=== PATIENT | male | born 1940 | race Hispanic/Latino ===

== ENCOUNTER 2020-05-10 10:22 | Inpatient (IN) | payer MEDICARE, MEDICAID, OTHER ==
[2020-05-10 11:23] LABS: ALT (SGPT) Less than 7 U/L (8-55); AST (SGOT) 13 U/L (5-34); Albumin 3.3 g/dL (3.4-4.8); Alkaline Phosphatase 104 U/L (40-110); Anion Gap 14 mmol/L (10-20); BUN (Urea Nitrogen) 14 mg/dL (8.4-25.7); Bilirubin, Total 1.1 mg/dL (0.2-1.2); CK (CPK) 37 U/L (30-200); Calc. Creatinine Clearance 0 mL/min (70-130); Calcium 8.6 mg/dL (7.8-10.44); Carbon Dioxide 33 mmol/L (23-31); Chloride 93 mmol/L (98-107); Estimated GFR-MDRD 15; Globulin 3.6 g/dL (2.4-3.5); Glucose 103 mg/dL (83-110); Lipase 15 U/L (8-78); Potassium 3.3 mmol/L (3.5-5.1); Protein, Total 6.9 g/dL (5.8-8.1); Sodium 137 mmol/L (136-145)
[2020-05-10 11:31] LABS: #Lymphocytes 0.4 thou/uL (1.20-3.40); #Monocytes 0.2 thou/uL (0.11-0.59); %Eosinophils 0.3 % (0.0-10.0); %Lymphocytes 16.2 % (21.0-51.0); %Neutrophils 74.6 % (42.0-75.0); Hemoglobin 9.8 g/dL (14.0-18.0); Mean Corpuscular HGB CONC 35.7 g/dL (32.0-36.0); Mean Corpuscular Hemoglobin 36.7 pg (27.0-31.0); Platelet Count 99 thou/uL (130-400); Platelet Morphology Comment Appears Decreased; RBC Distribution Width 13.5 % (11.5-14.5); Red Blood Cell (RBC) Count 2.66 mill/uL (4.70-6.10); White Blood Cell (WBC) Count 2.7 thou/uL (4.8-10.8)
[2020-05-10 11:33] LABS: MDiff Complete? YES
[2020-05-10 11:44] LABS: CKMB 0.8 ng/mL (0-6.6)
--- NOTE | 2020-05-10 11:44 | RAD ---
PORTABLE CHEST ONE VIEW: 05/10/2020 10:33 a.m. HISTORY: Fever. Dyspnea. COMPARISON: 11/12/2009 FINDINGS: The heart size is borderline. There are changes of median sternotomy. There are right-sided vascular stents. There are bibasilar infiltrates. No pneumothoraces or large effusions are seen. POS: MZA
[2020-05-10] MEDS ORDERED: Aspirin Chewable 81 MG TAB ONE (12:03)
[2020-05-10] MEDS ORDERED: Aspirin 300 MG Suppository ONE (12:03)
[2020-05-10] MEDS ORDERED: Ondansetron PF 4 MG/2 ML Vial IVP PRN (12:11)
[2020-05-10] MEDS ORDERED: Acetaminophen 325 MG TAB PO PRN (12:11)
[2020-05-10] MEDS ORDERED: Ondansetron ODT 4 MG TAB SL PRN (12:11)
[2020-05-10] MEDS ORDERED: Heparin 25,000 units/D5W 500 ML ONE (12:22)
[2020-05-10] MEDS ORDERED: Heparin 1,000 UNITS/ML VIAL ONE (13:45)
[2020-05-10 14:14] LABS: Troponin I 0.435 ng/mL (< 0.028)
[2020-05-10] MEDS ORDERED: Dextrose 50% Abboject 50 ML SYRINGE ONE (14:40)
--- NOTE | 2020-05-10 15:10 | HP ---
PRIMARY CARE PHYSICIAN: Unknown. CHIEF COMPLAINT: Altered mental status and weakness. HISTORY OF PRESENT ILLNESS: The history of present illness is taken from discussion with the ER physician and the emergency room records as there is no family at the bedside and the patient is too confused to give me any history and history was also attempted to be obtained through a professional senior payroll administrator, but this was not possible due to the patient's confusion as well. Mr. Benitez is a 79-year-old gentleman, who has a history of end-stage renal disease, on hemodialysis. He was brought in by family members as he has been tested for coronavirus, but apparently they did not have the results back yet. They were noticed that he seemed confused and he was noted to be febrile on admission. Apparently, they noticed that he was shaking. Otherwise, no other history is obtained. The patient when asked if he was having any shortness of breath, he denied this, or any chest pain, he also denied, but he was not able to tell me where he is. He was not able to tell the date; when asked, he just stared at me, but he was able to answer those other questions. REVIEW OF SYSTEMS: Currently unobtainable. PAST MEDICAL HISTORY: Significant for what appears to be coronary artery disease and end-stage renal disease. PAST SURGICAL HISTORY: Unknown. SOCIAL HISTORY: Unknown. ALLERGIES: NO DRUG ALLERGIES THAT WE ARE AWARE OF. FAMILY HISTORY: Unobtainable due to the patient being confused. MEDICATIONS: As reported from the EMS, that picked him up, that he was on, 1. Plavix daily. 2. Metoprolol. 3. Glipizide. 4. Simvastatin. PHYSICAL EXAMINATION: GENERAL: He is awake, but he does tend to fall asleep easily during the exam. Unable to assess orientation. He is well developed and well nourished in appearance. VITAL SIGNS: Blood pressure 136/51, heart rate 72, respiratory rate 16, temperature 100.6, and O2 sat 96% on room air. HEENT: Pupils are equal, round, and reactive to light. Extraocular muscles are intact. Sclerae anicteric. NECK: No adenopathy. No bruits. LUNGS: He has bilateral rales, very soft, faint at the bases. There is no wheezing or rhonchi. CARDIOVASCULAR: He has a normal S1 and S2. There is no S3 or S4. No murmurs, clicks or rubs. ABDOMEN: Soft, nontender, and nondistended. Positive for bowel sounds. No rebound. No guarding. No organomegaly. EXTREMITIES: There is no clubbing or cyanosis. No edema. No calf tenderness. No joint effusions. NEUROLOGIC: He is moving all extremities and is grossly nonfocal. SKIN AND INTEGUMENT: There is no significant skin changes, no rash. LABORATORY DATA: White blood cell count 2.7, hemoglobin 9.8, hematocrit 27.4, and platelet count 99. Chemistry; sodium 137, potassium 3.3, chloride 93, CO2 of 33, BUN 14, creatinine 3.91, and glucose 103. Troponin is 0.372. DIAGNOSTIC DATA: He had a chest x-ray, in which he had borderline cardiomegaly, increased pulmonary vascular markings bilaterally, and was not able to see the costophrenic angles clearly, that is by my reading. There is an EKG done by the EMS showing some T-wave inversions in I and aVL and some nonspecific ST-T wave changes in lead II and III. This is by my reading. ASSESSMENT: 1. This is a 79-year-old gentleman, who presents with what appears to be a fairly sudden onset of altered mental status and fever according to the family. He has exposure to the COVID-19 virus by family members and is at high risk of having the infection himself. It appears as if he has bilateral infiltrates, fever and an elevated troponin, which is likely demand due to pneumonia, and sepsis. He will be admitted, started on empiric antibiotics for community-acquired pneumonia. Placed on respiratory isolation as well as droplet precautions given the risk for COVID pneumonia. We will continue to trend his cardiac enzymes as well as his inflammatory markers. If his troponins go much higher than the current level, then we will consider Cardiology evaluation. The COVID screen has been obtained. 2. End-stage renal disease. We will consult Nephrology for maintenance dialysis. 3. We will need to reconcile and restart his home medications, and then also hopefully we will be able to discuss with family to see if there is any additional history that can be obtained that might affect the course of his treatment. Job ID: [id number]
[2020-05-10] MEDS ORDERED: Nitroglycerin 0.4 MG TAB (25 Tab Bottle) PO PRN (15:16)
[2020-05-10] MEDS ORDERED: Heparin 25,000 units/D5W 500 ML IVPB SCH (15:16)
[2020-05-10] MEDS ORDERED: Heparin 10,000 UNITS/ 10 ML VIAL SLOW IVP SCH ×3 (15:16→17:45)
[2020-05-10] MEDS ORDERED: Nitroglycerin 2% Ointment 1 INCH/1 GM Packet TOP SCH (15:30)
[2020-05-10 15:45] LABS: Hemoglobin 9.6 g/dL (14.0-18.0); Platelet Count 78 thou/uL (130-400)
[2020-05-10] MEDS ORDERED: cefTRIAXone\\ROCEPHIN 1 GM in Sodium Chloride 0.9% 100 ML IVPB SCH (16:00)
[2020-05-10] MEDS ORDERED: Azithromycin 500 MG in Sodium Chloride 0.9% 250 ML 250 ML IVPB SCH (17:00)
[2020-05-10 17:35] LABS: Troponin I 0.474 ng/mL (< 0.028)
--- NOTE | 2020-05-10 17:38 | CON ---
REASON FOR CONSULTATION: ESRD on hemodialysis HISTORY OF PRESENT ILLNESS: Patient is a 79-year-old male with past medical history of ESRD, on hemodialysis; hypertension, who was brought to the hospital with complaints of fever and confusion. Patient is confused, and no family is present at the beds. Attempted to communicate with the patient with the help of we do loss prevention operations manager. Patient is unable to engage in conversation does not answer questions appropriately. Information was obtained from the chart. Patient was brought to ED by the family members as the patient was found to be confused. The patient was apparently tested for coronavirus, results pending. There was no mention of shortness of breath, fever, or chills. Patient's hemodialysis schedule as outpatient is Monday, and Monday. Cannot confirm if the patient had dialysis yesterday. PAST MEDICAL HISTORY: ESRD, on hemodialysis; hypertension. PSH, Social history and family history: unable to obtain PHYSICAL EXAMINATION: VITAL SIGNS: Blood pressure 136/51, pulse rate 72 per minute, respiratory rate 16 per minute, temperature 100.6 Fahrenheit, oxygen saturation 96% on room air. GENERAL: The patient is not in pain or discomfort. HEENT: Mucous membranes are moist. No icterus. CVS: Rhythm regular, rate normal. No murmurs. LUNGS: Air entry equal bilaterally, scattered crackles right>left. No wheezing. ABDOMEN: Soft. No tenderness. Bowel sounds present. EXTREMITIES: No edema or ulcers. TIN CUTTER: Patient is awake, following commands. PSYCHIATRIC: Not agitated. LABORATORY DATA: Hemoglobin 9.6, hematocrit 28.4. Sodium 137, potassium 3.3, bicarb 33, BUN 14, creatinine 3.91. ASSESSMENT AND PLAN: 1. End-stage renal disease, on hemodialysis - outpatient schedule is Monday, , and Monday. We will evaluate in the a.m. for need for renal replacement therapy. 2. Pneumonia - the patient is on Rocephin and Zithromax. 3. Dose medications for end-stage renal disease. Discussed with RN Thank you for allowing to participate in the management of this patient. Job ID: [id number] MTDD
[2020-05-10] MEDS: Carvedilol 6.25 MG TAB PO SCH (18:38)
[2020-05-11] MEDS: Acetaminophen 325 MG TAB PO PRN ×2 (00:58→08:10)
[2020-05-11] MEDS: Nitroglycerin 2% Ointment 1 INCH/1 GM Packet TOP SCH ×4 (01:41→21:11)
[2020-05-11 05:18] LABS: Anion Gap 12 mmol/L (10-20); BUN (Urea Nitrogen) 21 mg/dL (8.4-25.7); CRP (Inflammatory) 11.94 mg/dL (= or < 0.5); Calc. Creatinine Clearance 11 mL/min (70-130); Calcium 8.2 mg/dL (7.8-10.44); Carbon Dioxide 31 mmol/L (23-31); Cardiac Risk 2.7 (Less than 4.5); Chloride 95 mmol/L (98-107); Cholesterol 86 mg/dl (< 200 Desired); Estimated GFR-MDRD 11; Glucose 89 mg/dL (83-110); HDL Cholesterol 32 mg/dL (>60 Neg Risk); LDL Cholesterol, Calculated 40 mg/dL; Potassium 3.1 mmol/L (3.5-5.1); Sodium 135 mmol/L (136-145); Triglycerides 70 mg/dL (Less than 150)
[2020-05-11] MEDS ORDERED: Sevelamer Carbonate 800 MG TAB PO SCH (08:00)
[2020-05-11 08:01] LABS: PTT Greater than 250.0 sec (22.9-36.1)
[2020-05-11] MEDS: Metoprolol Tartrate 25 MG TAB PO SCH ×2 (08:10→20:13)
[2020-05-11] MEDS: Clopidogrel Bisulfate 75 MG TAB PO SCH (08:10)
[2020-05-11] MEDS: Sevelamer Carbonate 800 MG TAB PO SCH ×3 (08:10→18:34)
[2020-05-11] MEDS: Aspirin 81 mg Enteric Coated Tablet PO SCH (08:10)
[2020-05-11] MEDS: Carvedilol 6.25 MG TAB PO SCH ×2 (08:10→18:34)
[2020-05-11] MEDS ORDERED: Prevnar 13-Val Conj/PF 0.5 ML SYRINGE IM ONE (09:00)
[2020-05-11] MEDS ORDERED: Simvastatin 40 MG TAB PO SCH (09:00)
[2020-05-11] MEDS ORDERED: Metoprolol Tartrate 25 MG TAB PO SCH (09:00)
[2020-05-11 09:44] LABS: #Lymphocytes 0.4 thou/uL (1.20-3.40); #Monocytes 0.2 thou/uL (0.11-0.59); #Neutrophils 1.2 thou/uL (1.40-6.50); %Basophils 1.3 % (0.0-1.0); %Eosinophils 1.3 % (0.0-10.0); %Lymphocytes 23.7 % (21.0-51.0); %Monocytes 8.3 % (0.0-10.0); %Neutrophils 65.4 % (42.0-75.0); MDiff Complete? YES; Macrocytosis SLIGHT = 6-15 cells (100X) (0-5/hpf); Mean Corpuscular HGB CONC 34.1 g/dL (32.0-36.0); Mean Corpuscular Hemoglobin 35.8 pg (27.0-31.0); Mean Platelet Volume 9.7 fL (7.4-10.4); Platelet Count 99 thou/uL (130-400); Platelet Morphology Comment Appears Decreased; RBC Distribution Width 13.5 % (11.5-14.5); Red Blood Cell (RBC) Count 2.51 mill/uL (4.70-6.10); White Blood Cell (WBC) Count 1.8 thou/uL (4.8-10.8)
[2020-05-11 14:07] LABS: SARS-CoV-2 MS2 Positive; SARS-CoV-2 N Gene Positive; SARS-CoV-2 S Gene Positive; SARS-CoV-2 orf1ab Positive
--- NOTE | 2020-05-11 14:54 | PRG ---
DATE OF SERVICE: 05/11/2020 SUBJECTIVE: Patient was seen and examined at bedside and overnight events noted. Patient denies any shortness of breath or chest pain or palpitation. No history of nausea or vomiting or diarrhea or fever or chills or cramps. OBJECTIVE: GENERAL: This is a well-built male, in no apparent distress. VITAL SIGNS: Temperature 98.7. Heart Rate 83. Respiratory rate 18. Blood pressure 143/60. HEENT: Atraumatic, normocephalic. Oral mucosa is moist. NECK: Supple. CARDIOVASCULAR: S1, S2 heard. Rate and rhythm regular. RESPIRATORY: Clear to auscultation. GASTROINTESTINAL: Abdomen is soft. MUSCULOSKELETAL: No tenderness. No edema. DERMATOLOGIC: No skin rash. NEUROLOGIC: Alert and awake and oriented x3. No focal neurologic deficits. Moving all the extremities. PSYCHIATRIC: Mood and affect normal. LABORATORY DATA: Potassium is 3.1, BUN is 21, creatinine is 4.9. ASSESSMENT AND PLAN: 1. End-stage renal disease, on hemodialysis. Continue dialysis on TTS. 2. History of hypertension. 3. Chronic anemia. 4. Edema, controlled. 5. Hypokalemia. 6. Hyponatremia. 7. Altered mentation. PLAN: Plan is to continue on dialysis as tolerated on Monday, , and Monday. Job ID: [id number]
--- NOTE | 2020-05-11 15:12 | PDOC.HOSPP ---
- Subjective Encounter Date: 05/11/20 Encounter Time: 15:11 Subjective: Mr. Benitez was seen today in follow-up of COVID infection and confusion. He is more alert than yesterday, but still does not answer questions consistently. He denies feeling short of breath and denies chest pain. - Objective Vital Signs & Weight: Vital Signs (12 hours) Temp Pulse Resp BP Pulse Ox 05/11/20 12:19 98.7 F 83 18 143/64 H 93 L 05/11/20 09:45 97 05/11/20 08:20 98.5 F 104 H 18 146/73 H 96 05/11/20 03:11 99.7 F H 82 18 98 Weight Admit Weight 135 lb 14.287 oz Weight 135 lb 14.287 oz Result Diagrams: 05/11/20 04:44 05/11/20 04:44 Additional Labs: Accuchecks 05/11/20 05/10/20 12:19 14:38 POC Glucose 62 L 68 L Hospitalist ROS - Medication Medications: Active Medications Generic Name Dose Route Start Last Admin Trade Name Freq PRN Reason Stop Dose Admin Acetaminophen 650 mg 05/10/20 15:16 05/11/20 08:10 Tylenol PO 650 mg Q4H PRN Administration Headache/Fever/Mild Pain (1-3) Aspirin 81 mg 05/11/20 09:00 05/11/20 08:10 Ecotrin PO 81 mg DAILY CELIA Administration Carvedilol 6.25 mg 05/10/20 17:00 05/11/20 08:10 Coreg PO 6.25 mg BID-WM CELIA Administration Clopidogrel Bisulfate 75 mg 05/11/20 09:00 05/11/20 08:10 Plavix PO 75 mg DAILY CELIA Administration Heparin Sodium (Porcine) 0 units 05/10/20 17:30 05/11/20 00:48 Heparin 1,000 Units/Ml (10 Ml) SLOW IVP 3,696 unit ASDIR CELIA Administration Protocol Metoprolol Tartrate 25 mg 05/11/20 09:00 05/11/20 08:10 Lopressor PO 25 mg BID CELIA Administration Nitroglycerin 0.5 inch 05/10/20 22:00 05/11/20 15:09 Nitro-Bid 2% Ointment TOP Not Given Q8HR [facility] Pantoprazole Sodium 40 mg 05/11/20 09:00 05/11/20 08:10 Protonix PO 40 mg DAILY CELIA Administration Sevelamer Carbonate 1,600 mg 05/11/20 08:00 05/11/20 12:04 Renvela PO Not Given TID-WM CELIA Sodium Chloride 10 ml 05/11/20 09:00 05/11/20 08:11 Flush - Normal Saline IVF 10 ml Q12HR CELIA Administration - Exam Eye: PERRL, anicteric sclera Heart: RRR, no murmur, no gallops, no rubs, normal peripheral pulses Respiratory: rales (+ rales bilaterally) Gastrointestinal: soft, non-tender, non-distended, normal bowel sounds, no palpable masses Extremities: no cyanosis, no edema Hosp A/P (1) COVID-19 virus infection Code(s): U07.1 - COVID-19 Status: Acute (2) Metabolic encephalopathy Code(s): G93.41 - METABOLIC ENCEPHALOPATHY Status: Acute (3) End stage renal disease on dialysis Code(s): N18.6 - END STAGE RENAL DISEASE; Z99.2 - DEPENDENCE ON RENAL DIALYSIS Status: Chronic (4) Hypertension Code(s): I10 - ESSENTIAL (PRIMARY) HYPERTENSION Status: Chronic (5) CAD (coronary artery disease) Code(s): I25.10 - ATHSCL HEART DISEASE OF [place] CORONARY ARTERY W/O ANG PCTRS Status: Chronic - Plan * Metabolic encephalopathy- likely due to COVID infection * Will continue supportive care * Will get ID opinion as to whether he is a candidate for Remdesivir * Continue to trend Inflammatory markers * ESRD- continue Dialysis as per Nephrology * Hyperkalemia- manage as per Nephrology * HTN- blood pressure is stable * Elevated troponins- this is likely due to NSTEMI type 2- demand ischemia from the COVID infection
[2020-05-11 18:46] LABS: PTT 116.1 sec (22.9-36.1)
[2020-05-11] MEDS: Atorvastatin Calcium 20 MG TAB PO SCH (20:13)
[2020-05-11] MEDS ORDERED: cefTRIAXone\\ROCEPHIN 1 GM in Sodium Chloride 0.9% 100 ML IVPB SCH (21:00)
[2020-05-11] MEDS ORDERED: Azithromycin 500 MG in Sodium Chloride 0.9% 250 ML 250 ML IVPB SCH (21:00)
[2020-05-11] MEDS ORDERED: Heparin 5,000 UNITS/ML VIAL SC SCH (21:00)
[2020-05-12 01:47] LABS: PTT 241.1 sec (22.9-36.1)
[2020-05-12] MEDS: Nitroglycerin 2% Ointment 1 INCH/1 GM Packet TOP SCH ×2 (06:02→17:13)
--- NOTE | 2020-05-12 07:17 | CON ---
DATE OF CONSULTATION: 05/11/2020 REASON FOR CONSULTATION: COVID pneumonia. HISTORY OF PRESENT ILLNESS: A 79-year-old, history of type 2 diabetes, end- stage renal disease, on hemodialysis through an AV fistula in right upper extremity, with history of cough and dyspnea. Duration of illness is approximately 4 days before admission. Family member had acquired COVID and probably transmitted to him. He came in yesterday, and on arrival, BP 180/60, pulse 87, respirations 24, temperature 100.6, and O2 saturation 96% on room air. He appeared disoriented, uncomfortable , diffuse expiratory wheezing, S1 and S2, abdomen was soft. Initial chest x-ray with diffuse bilateral infiltrates at the bases. Currently, Mr. Benitez keeps his eyes closed, but he answers questions after some insistence. I was able to have him drink some sugary fluid because of his decreased blood sugar of 58, and he drank pretty much almost the entire glass. He denies any pain at the moment. He does not have dyspnea. He is coughing intermittently, but not much, and he is voiding in a diaper. PAST MEDICAL HISTORY: Type 2 diabetes, end-stage renal disease. SURGICAL HISTORY: AV fistula placement, prior hemodialysis catheters, and coronary artery bypass graft surgery. SOCIAL HISTORY: Lives in the area with family. ALLERGIES: NONE. FAMILY HISTORY: Type 2 diabetes. CURRENT MEDICATIONS: 1. Tylenol. 2. Ecotrin. 3. Lipitor. 4. Azithromycin. 5. Ceftriaxone. 6. Plavix. 7. Metoprolol. 8. Nitroglycerin. 9. Pantoprazole. 10. Renvela. PHYSICAL EXAMINATION: VITAL SIGNS: Temperature 101, BP 140/60, pulse 83, respirations 18, and O2 saturation 93% to 97%. SKIN: Shows the AV fistula which is patent in the right upper extremity. Areas of bruising. No lymphadenopathy. HEENT: Ocular movements conjugate. Sclerae are white. Pupils are 2 mm and reactive. Oral cavity with no rosebud teeth remaining. LUNGS: Symmetric air entry. HEART: S1 and S2. Regular rate, without murmurs. ABDOMEN: Soft, not distended or tender. No ascites. No bladder distention. MUSCULOSKELETAL: No joint inflammatory activity. No back tenderness. Moving extremities equally. No edema. NEUROLOGIC: He is awake but somnolent. He knows his name. He tells me he is in the hospital, but cannot tell me which one. Cannot give me the date. LABORATORY STUDIES: Sodium 135, potassium 3.1, creatinine 4.98. CRP 11.94. Ferritin 1500. D-dimer was 0.63. ASSESSMENT: 1. End-stage renal disease secondary to type 2 diabetes, on hemodialysis, right upper extremity. 2. COVID pneumonia. The patient is not eligible for remdesivir, and we will go ahead and start him on Decadron. He is saturating 93% on room air, so I am sure he may start deteriorating. It is very early in his course of illness, and we will give him 6 mg of Decadron daily IV. Job ID: [id number] MTDD
[2020-05-12 08:28] LABS: #Eosinphils 0.1 thou/uL (0.0-0.7); #Lymphocytes 0.6 thou/uL (1.20-3.40); #Monocytes 0.2 thou/uL (0.11-0.59); %Basophils 1.1 % (0.0-1.0); %Neutrophils 51.9 % (42.0-75.0); Hemoglobin 7.9 g/dL (14.0-18.0); Mean Corpuscular HGB CONC 33.3 g/dL (32.0-36.0); Mean Corpuscular Hemoglobin 35.2 pg (27.0-31.0); Mean Platelet Volume 9.3 fL (7.4-10.4); Platelet Count 88 thou/uL (130-400); RBC Distribution Width 13.6 % (11.5-14.5); Red Blood Cell (RBC) Count 2.25 mill/uL (4.70-6.10); White Blood Cell (WBC) Count 1.9 thou/uL (4.8-10.8)
[2020-05-12 08:38] LABS: Anion Gap 15 mmol/L (10-20); BUN (Urea Nitrogen) 33 mg/dL (8.4-25.7); Calc. Creatinine Clearance 8 mL/min (70-130); Calcium 8.2 mg/dL (7.8-10.44); Carbon Dioxide 28 mmol/L (23-31); Chloride 96 mmol/L (98-107); Estimated GFR-MDRD 8; Potassium 3.7 mmol/L (3.5-5.1); Sodium 135 mmol/L (136-145)
[2020-05-12 08:40] LABS: Glucose 45 mg/dL (83-110)
[2020-05-12] MEDS ORDERED: Dextrose 5% in Water 1,000 ML IV SCH (09:00)
[2020-05-12] MEDS: Aspirin 81 mg Enteric Coated Tablet PO SCH (09:30)
[2020-05-12] MEDS: Clopidogrel Bisulfate 75 MG TAB PO SCH (09:30)
[2020-05-12] MEDS: Carvedilol 6.25 MG TAB PO SCH ×3 (09:31→17:14)
[2020-05-12] MEDS: Sevelamer Carbonate 800 MG TAB PO SCH ×4 (09:31→17:14)
[2020-05-12] MEDS: Metoprolol Tartrate 25 MG TAB PO SCH ×3 (09:31→21:15)
[2020-05-12] MEDS: Dexamethasone 4 mg/ml Vial SLOW IVP SCH (09:31)
[2020-05-12 11:57] LABS: HBSAg Index 0.27 S/CO (0-0.99); Hep B Surf Ag Non-Reactive S/CO (NonReactive)
--- NOTE | 2020-05-12 12:34 | PDOC.HOSPP ---
- Subjective Encounter Date: 05/12/20 Encounter Time: 12:32 Subjective: Mr. Benitez was seen today in follow-up of COVID pneumonia and metabolic encephalopathy. He does not have any complaints. He is confused, but will answer some questions. - Objective Vital Signs & Weight: Vital Signs (12 hours) Temp Pulse Resp BP Pulse Ox 05/12/20 09:45 98.0 F 70 20 113/49 L 96 05/12/20 08:15 95 05/12/20 05:30 99.1 F 05/12/20 01:55 76 20 130/53 L 95 Weight Admit Weight 135 lb 14.287 oz Weight 143 lb 6.4 oz I&O: 05/11/20 05/12/20 05/13/20 06:59 06:59 06:59 Intake Total 1037.6 Output Total 0 Balance 1037.6 Result Diagrams: 05/12/20 08:17 05/12/20 08:17 Additional Labs: Accuchecks 05/12/20 05/11/20 05/11/20 10:18 20:39 18:45 POC Glucose 61 L 81 89 05/11/20 17:27 POC Glucose 58 L* Hospitalist ROS - Medication Medications: Active Medications Generic Name Dose Route Start Last Admin Trade Name Freq PRN Reason Stop Dose Admin Acetaminophen 650 mg 05/10/20 15:16 05/11/20 08:10 Tylenol PO 650 mg Q4H PRN Administration Headache/Fever/Mild Pain (1-3) Aspirin 81 mg 05/11/20 09:00 05/12/20 09:30 Ecotrin PO 81 mg DAILY CELIA Administration Atorvastatin Calcium 20 mg 05/11/20 21:00 05/11/20 20:13 Lipitor PO 20 mg HS CELIA Administration Carvedilol 6.25 mg 05/10/20 17:00 05/12/20 11:18 Coreg PO Not Given BID-WM CELIA Clopidogrel Bisulfate 75 mg 05/11/20 09:00 05/12/20 09:30 Plavix PO 75 mg DAILY CELIA Administration Dexamethasone 6 mg 05/12/20 09:00 05/12/20 09:31 Decadron SLOW IVP 6 mg DAILY CELIA Administration Ceftriaxone Sodium 1 gm/ 100 mls @ 200 mls/hr 05/11/20 21:00 05/11/20 20:11 Sodium Chloride IVPB 100 mls 2100 CELIA Administration Azithromycin 500 mg/ Sodium 250 mls @ 250 mls/hr 05/11/20 21:00 05/11/20 20: 12 Chloride IVPB 250 mls 2100 CELIA Administration Dextrose/Water 1,000 mls @ 30 mls/hr 05/12/20 09:00 05/12/20 09:38 D5w IV 1,000 mls .Q24H CELIA Administration Metoprolol Tartrate 25 mg 05/11/20 09:00 05/12/20 11:18 Lopressor PO Not Given BID CELIA Nitroglycerin 0.5 inch 05/10/20 22:00 05/12/20 06:02 Nitro-Bid 2% Ointment TOP 0.5 inch Q8HR CELIA Administration Pantoprazole Sodium 40 mg 05/11/20 09:00 05/12/20 11:19 Protonix PO Not Given DAILY CELIA Sevelamer Carbonate 1,600 mg 05/11/20 08:00 05/12/20 12:22 Renvela PO Not Given TID-WM CELIA Sodium Chloride 10 ml 05/11/20 09:00 05/12/20 11:16 Flush - Normal Saline IVF 10 ml Q12HR CELIA Administration - Exam Eye: PERRL, anicteric sclera Heart: RRR, no murmur, no gallops, no rubs, normal peripheral pulses Respiratory: rales Gastrointestinal: soft, non-tender, non-distended, normal bowel sounds, no palpable masses, no hepatomegaly Extremities: no cyanosis, no edema Hosp A/P (1) COVID-19 virus infection Code(s): U07.1 - COVID-19 Status: Acute (2) Metabolic encephalopathy Code(s): G93.41 - METABOLIC ENCEPHALOPATHY Status: Acute (3) End stage renal disease on dialysis Code(s): N18.6 - END STAGE RENAL DISEASE; Z99.2 - DEPENDENCE ON RENAL DIALYSIS Status: Chronic (4) Hypertension Code(s): I10 - ESSENTIAL (PRIMARY) HYPERTENSION Status: Chronic (5) CAD (coronary artery disease) Code(s): I25.10 - ATHSCL HEART DISEASE OF [place] CORONARY ARTERY W/O ANG PCTRS Status: Chronic - Plan * Metabolic encephalopathy- likely due to COVID infection * Will continue supportive care * He has been evaluated by ID. He is not considered a Remdesivir candidate * Continue to trend Inflammatory markers * ESRD- continue Dialysis as per Nephrology * Hypokalemia- improved * HTN- blood pressure is stable * Elevated troponins- this is likely due to NSTEMI type 2- demand ischemia from the COVID infection- continue Lovenox, therapeutic dose, renal dosed
[2020-05-12 15:11] LABS: Platelet Count 92 thou/uL (130-400)
--- NOTE | 2020-05-12 18:35 | PRG ---
DATE OF SERVICE: 05/12/2020 SUBJECTIVE: The patient was seen and examined at bedside and overnight events noted. The patient denies any shortness of breath or chest pain or palpitation. No history of nausea or vomiting or diarrhea or fever or chills or cramps. OBJECTIVE: GENERAL: This is a well-built male, in no apparent distress. VITAL SIGNS: Temperature 98.0. Heart rate 70. Respiratory rate 20. Blood pressure 113/49. HEENT: Atraumatic, normocephalic. Oral mucosa is moist. NECK: Supple. CARDIOVASCULAR: S1, S2 heard. Rate and rhythm regular. RESPIRATORY: Clear to auscultation. GASTROINTESTINAL: Abdomen is soft. MUSCULOSKELETAL: No tenderness. No edema. DERMATOLOGIC: No skin rash. NEUROLOGIC: Alert and awake and oriented x3. No focal neurologic deficits. Moving all the extremities. PSYCHIATRIC: Mood and affect normal. LABORATORY DATA: Potassium is 3.7, BUN is 33, creatinine is 6.7. ASSESSMENT AND PLAN: 1. End-stage renal disease. Continue on hemodialysis. 2. Hypertension. 3. Anemia of chronic disease. 4. Hypokalemia. 5. Hyponatremia. 6. Altered mentation. Continue on dialysis as tolerated. Job ID: [id number]
[2020-05-12] MEDS: Atorvastatin Calcium 20 MG TAB PO SCH (21:15)
[2020-05-13] MEDS: Carvedilol 6.25 MG TAB PO SCH ×2 (08:11→15:28)
[2020-05-13] MEDS: Sevelamer Carbonate 800 MG TAB PO SCH ×3 (08:12→15:28)
[2020-05-13] MEDS: Aspirin 81 mg Enteric Coated Tablet PO SCH (08:12)
[2020-05-13] MEDS: Dexamethasone 4 mg/ml Vial SLOW IVP SCH (08:12)
[2020-05-13] MEDS: Clopidogrel Bisulfate 75 MG TAB PO SCH (08:12)
[2020-05-13] MEDS: Enoxaparin Sodium 60 MG/0.6 ML SYRINGE SC SCH (08:12)
[2020-05-13] MEDS: Metoprolol Tartrate 25 MG TAB PO SCH ×2 (08:16→19:50)
--- NOTE | 2020-05-13 16:24 | PRG ---
DATE OF SERVICE: 05/13/2020 SUBJECTIVE: Patient was seen and examined at bedside and overnight events noted. Patient denies any shortness of breath or chest pain or palpitation. No history of nausea or vomiting or diarrhea or fever or chills or cramps. OBJECTIVE: General: This is a well-built male, in no acute distress. Vital Signs: Temperature 98.2. Heart Rate 72. Respiratory rate 20. Blood pressure 174/76. HEENT: Atraumatic, normocephalic. Oral mucosa is moist. Neck: Supple. Cardiovascular: S1, S2 heard. Rate and rhythm regular. Respiratory: Clear to auscultation. Gastrointestinal: Abdomen is soft. Musculoskeletal: No tenderness. No edema. Dermatologic: No skin rash. Neurologic: Alert and awake and oriented x3. No focal neurologic deficits. Moving all the extremities. Psychiatric: Mood and affect normal. LABORATORY DATA: No labs done today. ASSESSMENT AND PLAN: 1. End-stage renal disease. Continue dialysis Monday, , and Monday as tolerated. 2. Hypertension. 3. Anemia. 4. Hyponatremia. 5. Altered mentation. Continue dialysis on Monday, , and Monday as tolerated. Job ID: [id number]
--- NOTE | 2020-05-13 16:24 | PQF ---
CLINICAL DOCUMENTATION IMPROVEMENT CLARIFICATION FORM: ICD-10 Updated PLEASE DO AN ADDENDUM TO THE PROGRESS NOTE WITH ANY DOCUMENTATION UPDATES OR ADDITIONS AND CARRY THROUGH TO DC SUMMARY. THANK YOU. DATE: 05/13/2020; 05/14/2020 ATTN: Dr. Sánchez Please exercise your independent, professional judgment in responding to the clarification form. Clinical indicators are provided on the bottom of this form for your review Please check appropriate box(s) to clarify if the following diagnosis has been ruled in or ruled out: Sepsis [ X ] Ruled in diagnosis [ X] Continue to treat [ ] Resolved [ ] Ruled out diagnosis [ ] Improving [ ] Cannot rule out diagnosis [ ] Other diagnosis [ ] Unable to determine In addition, please specify: Present on Admission (POA): [X ] Yes [ ] No [ ] Unable to determine For continuity of documentation, please document condition throughout progress notes and discharge summary. Thank You. CLINICAL INDICATORS - SIGNS / SYMPTOMS / LABS / RESULTS AND LOCATION IN MR ER Record 05/10: VS: BP 152/58, pulse 80, Resp. 27, Temp 101.9, O2 sat 94 RA H&P 05/10: Lab: WBC 2.7 Assessment: It appears as if he has bilateral infiltrates, fever and an elevated troponin, which is likely demand due to pneumonia, and sepsis. RISKS: H&P 05/10: 79 yo with hx of ESRD on hemodialysis. 05/11 ([place]) COVID-19 virus infection. Metabolic encephalopathy. TREATMENT: ID CONSULT 05/11 Order 05/11-05/12: Zithromax 500mg IV; Rocephin 1 gm IV MAR: Order 05/11: Decadron 6mg slow IV daily Thank you, Radha (This form is maintained as a part of the permanent medical record) 2014 [employer]. All Rights Reserved Radha Gandhi RN, BSN [email or web address]
--- NOTE | 2020-05-13 16:49 | PDOC.HOSPP ---
- Subjective Encounter Date: 05/13/20 Encounter Time: 16:46 Subjective: Mr. Benitez was seen today in follow-up of COVID infection and metabolic encephalopathy. He is still confused. - Objective Vital Signs & Weight: Vital Signs (12 hours) Temp Pulse Resp BP Pulse Ox 05/13/20 15:29 98.2 F 72 22 H 174/76 H 97 05/13/20 12:09 99.3 F 73 20 151/69 H 100 05/13/20 08:41 100 05/13/20 08:30 98.3 F 73 20 162/71 H 05/13/20 05:00 98.3 F 72 15 121/63 100 Weight Admit Weight 135 lb 14.287 oz Weight 142 lb 6.698 oz I&O: 05/12/20 05/13/20 05/14/20 06:59 06:59 06:59 Intake Total 1037.6 811 360 Output Total 0 0 Balance 1037.6 811 360 Result Diagrams: 05/12/20 15:02 05/12/20 08:17 Additional Labs: Accuchecks 05/13/20 05/13/20 05/12/20 11:13 05:01 21:24 POC Glucose 334 H 285 H 222 H 05/12/20 05/12/20 16:54 06:12 POC Glucose 163 H 74 Hospitalist ROS - Medication Medications: Active Medications Generic Name Dose Route Start Last Admin Trade Name Freq PRN Reason Stop Dose Admin Acetaminophen 650 mg 05/10/20 15:16 05/11/20 08:10 Tylenol PO 650 mg Q4H PRN Administration Headache/Fever/Mild Pain (1-3) Aspirin 81 mg 05/11/20 09:00 05/13/20 08:12 Ecotrin PO 81 mg DAILY CELIA Administration Atorvastatin Calcium 20 mg 05/11/20 21:00 05/12/20 21:15 Lipitor PO 20 mg HS CELIA Administration Carvedilol 6.25 mg 05/10/20 17:00 05/13/20 15:28 Coreg PO 6.25 mg BID-WM CELIA Administration Clopidogrel Bisulfate 75 mg 05/11/20 09:00 05/13/20 08:12 Plavix PO 75 mg DAILY CELIA Administration Dexamethasone 6 mg 05/12/20 09:00 05/13/20 08:12 Decadron SLOW IVP 6 mg DAILY CELIA Administration Enoxaparin Sodium 60 mg 05/13/20 09:00 05/13/20 08:12 Lovenox SC 60 mg DAILY CELIA Administration Metoprolol Tartrate 25 mg 05/11/20 09:00 05/13/20 08:16 Lopressor PO Not Given BID CELIA Pantoprazole Sodium 40 mg 05/11/20 09:00 05/13/20 08:15 Protonix PO 40 mg DAILY CELIA Administration Sevelamer Carbonate 1,600 mg 05/11/20 08:00 05/13/20 15:28 Renvela PO 1,600 mg TID-WM CELIA Administration Sodium Chloride 10 ml 05/11/20 09:00 05/13/20 08:15 Flush - Normal Saline IVF Not Given Q12HR CELIA - Exam Eye: PERRL, anicteric sclera Heart: RRR, no murmur, no gallops, no rubs, normal peripheral pulses Respiratory: CTAB Gastrointestinal: soft, non-tender, non-distended, normal bowel sounds, no palpable masses Extremities: no cyanosis Hosp A/P (1) COVID-19 virus infection Code(s): U07.1 - COVID-19 Status: Acute (2) Metabolic encephalopathy Code(s): G93.41 - METABOLIC ENCEPHALOPATHY Status: Acute (3) End stage renal disease on dialysis Code(s): N18.6 - END STAGE RENAL DISEASE; Z99.2 - DEPENDENCE ON RENAL DIALYSIS Status: Chronic (4) Hypertension Code(s): I10 - ESSENTIAL (PRIMARY) HYPERTENSION Status: Chronic (5) CAD (coronary artery disease) Code(s): I25.10 - ATHSCL HEART DISEASE OF [place] CORONARY ARTERY W/O ANG PCTRS Status: Chronic - Plan * Metabolic encephalopathy- * Will continue supportive care * He has been evaluated by ID. He is not considered a Remdesivir candidate * Continue to trend Inflammatory markers * DM- blood glucose is elevated- will add a low dose Lantus * CAD- stable- continue anticoagulation * ESRD- continue dialysis as per Nephrology
--- NOTE | 2020-05-13 17:49 | PRG ---
DATE OF SERVICE: 05/13/2020 SUBJECTIVE: Mr. Benitez appears somewhat despondent. He is missing his family. He wants to go home. He denies any headaches. He knows he is at [facility]. He has no respiratory symptoms. He is not coughing. No abdominal pain. OBJECTIVE: VITAL SIGNS: His T-max is 101 on 05/11. He has been afebrile since , blood pressure 170/76, pulse 72, respirations 20 to 22, O2 saturation HEENT: His left eye has some hyperemia, but that is from his chronic eye problems. 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 LUNGS: Symmetric. Clear breath sounds. HEART: S1, S2. Regular rate. ABDOMEN: Soft, not distended. EXTREMITIES: I could not get him to move his lower extremities. LABORATORY DATA: White cell count starts at 2.7 and now is at 1.9, hemoglobin 9 , platelets 92 with 51% neutrophils. Creatinine 6.78. His ferritin has gone up to 2600 from admission. CRP has went up to 16, now is down to 14. D-dimer 0.63 and has not been repeated. DIAGNOSTIC DATA: Chest x-ray has not been repeated, though one on admission with basilar infiltrates. ASSESSMENT AND DISCUSSION: 1. End-stage renal disease secondary to type-2 diabetes. 2. COVID pneumonia, on Decadron with some improvement in O2 sats. He has been on room air 100% continues on Decadron and we will have to continue following his neurological progress. It appears that isolation and depression is a significant factor. Job ID: [id number] MTDD
[2020-05-13] MEDS: Atorvastatin Calcium 20 MG TAB PO SCH (19:50)
[2020-05-13] MEDS: Insulin Glargine 10 UNITS in Pre-Filled Syringe 1 EACH SC SCH (20:15)
[2020-05-14] MEDS ORDERED: HumaLOG 300 UNITS/3 ML VIAL SC PRN (00:33)
[2020-05-14] MEDS ORDERED: Dextrose 50% Abboject 50 ML SYRINGE SLOW IVP PRN (00:33)
[2020-05-14] MEDS ORDERED: Dextrose 5% in Water 1,000 ML IV PRN (00:33)
[2020-05-14] MEDS: HumaLOG 300 UNITS/3 ML VIAL SC PRN (04:57)
[2020-05-14] MEDS: hydrALAZINE 20 MG/ML VIAL SLOW IVP PRN (05:20)
[2020-05-14] MEDS: Insulin Glargine 20 UNITS in Pre-Filled Syringe 1 EACH SC SCH (08:52)
[2020-05-14] MEDS: Dexamethasone 4 mg/ml Vial SLOW IVP SCH (08:52)
[2020-05-14] MEDS: Metoprolol Tartrate 25 MG TAB PO SCH (08:53)
[2020-05-14] MEDS: Clopidogrel Bisulfate 75 MG TAB PO SCH (08:53)
[2020-05-14] MEDS: Aspirin 81 mg Enteric Coated Tablet PO SCH (08:53)
[2020-05-14] MEDS: Enoxaparin Sodium 60 MG/0.6 ML SYRINGE SC SCH (08:53)
[2020-05-14] MEDS: Sevelamer Carbonate 800 MG TAB PO SCH ×3 (09:37→17:57)
--- NOTE | 2020-05-14 13:04 | PRG ---
DATE OF SERVICE: 05/14/2020 SUBJECTIVE: Patient was seen and examined at bedside and overnight events noted. Patient denies any shortness of breath or chest pain or palpitation. No history of nausea or vomiting or diarrhea or fever or chills or cramps. OBJECTIVE: GENERAL: This is well-built male, in no apparent distress. VITAL SIGNS: Temperature 98. Pulse 70. Respiratory rate . Blood pressure 165/73. HEENT: Atraumatic, normocephalic. Oral mucosa is moist. NECK: Supple. CARDIOVASCULAR: S1, S2 heard. Rate and rhythm regular. RESPIRATORY: Clear to auscultation. GASTROINTESTINAL: Abdomen is soft. MUSCULOSKELETAL: No tenderness. No edema. DERMATOLOGIC: No skin rash. NEUROLOGIC: Alert and awake and oriented x3. No focal neurologic deficits. Moving all the extremities. PSYCHIATRIC: Mood and affect normal. LABORATORY DATA: No labs done today. ASSESSMENT AND PLAN: 1. End-stage renal disease, continue dialysis as tolerated. 2. Hypertension. 3. Anemia. 4. Hyponatremia. 5. Altered mentation. Labs are better. Mentation is better. We will continue. Job ID: [id number]
--- NOTE | 2020-05-14 14:54 | PDOC.HOSPP ---
- Subjective Encounter Date: 05/14/20 Encounter Time: 14:52 Subjective: Mr. Benitez was seen today in follow-up of COVID pneumonia and encephalopathy. He does not have any new complaints. He is more interactive today. He denies dyspnea. - Objective Vital Signs & Weight: Vital Signs (12 hours) Temp Pulse Resp BP BP BP Pulse Ox 05/14/20 11:28 99 05/14/20 11:26 98.5 F 61 24 H 137/63 100 05/14/20 09:05 99 05/14/20 08:55 98.8 F 70 26 H 165/73 H 99 05/14/20 05:20 71 182/74 H 05/14/20 04:00 98.2 F 71 20 182/74 H 100 Weight Admit Weight 135 lb 14.287 oz Weight 142 lb 11.2 oz I&O: 05/13/20 05/14/20 05/15/20 06:59 06:59 06:59 Intake Total 811 600 30 Output Total 0 Balance 811 600 30 Result Diagrams: 05/12/20 15:02 05/12/20 08:17 Additional Labs: Accuchecks 05/14/20 05/14/20 05/14/20 13:45 11:32 04:57 POC Glucose 116 H 103 416 H 05/14/20 05/13/20 00:15 20:05 POC Glucose 542 H 528 H Hospitalist ROS - Medication Medications: Active Medications Generic Name Dose Route Start Last Admin Trade Name Freq PRN Reason Stop Dose Admin Acetaminophen 650 mg 05/10/20 15:16 05/11/20 08:10 Tylenol PO 650 mg Q4H PRN Administration Headache/Fever/Mild Pain (1-3) Aspirin 81 mg 05/11/20 09:00 05/14/20 08:53 Ecotrin PO 81 mg DAILY CELIA Administration Atorvastatin Calcium 20 mg 05/11/20 21:00 05/13/20 19:50 Lipitor PO 20 mg HS CELIA Administration Clopidogrel Bisulfate 75 mg 05/11/20 09:00 05/14/20 08:53 Plavix PO 75 mg DAILY CELIA Administration Dexamethasone 6 mg 05/12/20 09:00 05/14/20 08:52 Decadron SLOW IVP 6 mg DAILY CELIA Administration Enoxaparin Sodium 60 mg 05/13/20 09:00 05/14/20 08:53 Lovenox SC Not Given DAILY CELIA Hydralazine HCl 10 mg 05/10/20 15:16 05/14/20 05:20 Apresoline SLOW IVP 10 mg Q4H PRN Administration SBP > 180 and HR < 70 Insulin Glargine 10 units/ 0.1 mls @ 0 mls/hr 05/13/20 21:00 05/13/20 20:15 Miscellaneous Medication SC 0.1 mls HS CELIA Administration Insulin Glargine 20 units/ 0.2 mls @ 0 mls/hr 05/14/20 09:00 05/14/20 08:52 Miscellaneous Medication SC 0.2 mls QAM CELIA Administration Insulin Human Lispro 0 units 05/14/20 00:33 05/14/20 04:57 Humalog SC 10 unit .MODERATE SLIDING SC PRN Administration Moderate Correctional Scale Insulin Human Lispro 0 units 05/14/20 00:33 05/14/20 00:47 Humalog SC 5 unit .BEDTIME SLIDING SC PRN Administration Bedtime Correctional Scale Metoprolol Tartrate 25 mg 05/11/20 09:00 05/14/20 08:53 Lopressor PO 25 mg BID CELIA Administration Pantoprazole Sodium 40 mg 05/11/20 09:00 05/14/20 08:53 Protonix PO 40 mg DAILY CELIA Administration Sevelamer Carbonate 1,600 mg 05/11/20 08:00 05/14/20 11:43 Renvela PO 1,600 mg TID-WM CELIA Administration Sodium Chloride 10 ml 05/11/20 09:00 05/14/20 08:54 Flush - Normal Saline IVF 10 ml Q12HR CELIA Administration - Exam Eye: PERRL Heart: RRR, no murmur, no gallops, no rubs, normal peripheral pulses Respiratory: rales Gastrointestinal: soft, non-tender, non-distended, normal bowel sounds, no palpable masses, no hepatomegaly Extremities: no cyanosis, no edema Hosp A/P (1) COVID-19 virus infection Code(s): U07.1 - COVID-19 Status: Acute (2) Metabolic encephalopathy Code(s): G93.41 - METABOLIC ENCEPHALOPATHY Status: Acute (3) End stage renal disease on dialysis Code(s): N18.6 - END STAGE RENAL DISEASE; Z99.2 - DEPENDENCE ON RENAL DIALYSIS Status: Chronic (4) Hypertension Code(s): I10 - ESSENTIAL (PRIMARY) HYPERTENSION Status: Chronic (5) CAD (coronary artery disease) Code(s): I25.10 - ATHSCL HEART DISEASE OF [place] CORONARY ARTERY W/O ANG PCTRS Status: Chronic - Plan * Metabolic encephalopathy- * Will continue supportive care * Continue Decadron IV * Continue to trend Inflammatory markers * DM- blood glucose is elevated- will increase the dose of Lantus * CAD- stable- continue anticoagulation * ESRD- continue dialysis as per Nephrology * HTN- blood pressure is stable
[2020-05-14 15:37] LABS: Hemoglobin 8.4 g/dL (14.0-18.0); Platelet Count 118 thou/uL (130-400)
[2020-05-14] MEDS: Acetaminophen 325 MG TAB PO PRN (17:56)
[2020-05-14] MEDS: Atorvastatin Calcium 20 MG TAB PO SCH (20:14)
[2020-05-14] MEDS: Insulin Glargine 10 UNITS in Pre-Filled Syringe 1 EACH SC SCH (20:14)
[2020-05-15] MEDS: Metoprolol Tartrate 25 MG TAB PO SCH ×3 (01:57→21:35)
[2020-05-15] MEDS: hydrALAZINE 20 MG/ML VIAL SLOW IVP PRN (05:27)
[2020-05-15] MEDS: Enoxaparin Sodium 60 MG/0.6 ML SYRINGE SC SCH (08:41)
[2020-05-15] MEDS: Dexamethasone 4 mg/ml Vial SLOW IVP SCH (08:41)
[2020-05-15] MEDS: Insulin Glargine 20 UNITS in Pre-Filled Syringe 1 EACH SC SCH (08:42)
[2020-05-15] MEDS: Sevelamer Carbonate 800 MG TAB PO SCH ×3 (08:42→18:25)
[2020-05-15] MEDS: Clopidogrel Bisulfate 75 MG TAB PO SCH (08:42)
[2020-05-15] MEDS: Aspirin 81 mg Enteric Coated Tablet PO SCH (08:42)
[2020-05-15] MEDS: Acetaminophen 325 MG TAB PO PRN (09:27)
--- NOTE | 2020-05-15 12:48 | PRG ---
DATE OF SERVICE: 05/15/2020 SUBJECTIVE: Patient was seen and examined at bedside and overnight events noted. Patient denies any shortness of breath or chest pain or palpitation. No history of nausea or vomiting or diarrhea or fever or chills or cramps. OBJECTIVE: GENERAL: This is a well built male, in no apparent distress. VITAL SIGNS: Temperature 100.6. Heart rate 87. Respiratory rate 18. Blood pressure 159/69. HEENT: Atraumatic, normocephalic. Oral mucosa is moist NECK: Supple. CARDIOVASCULAR: S1, S2 heard. Rate and rhythm regular. RESPIRATORY: Clear to auscultation. GASTROINTESTINAL: Abdomen is soft. MUSCULOSKELETAL: No tenderness. No edema. DERMATOLOGIC: No skin rash. NEUROLOGIC: Alert and awake and oriented X3. No focal neurologic deficits. Moving all the extremities. PSYCHIATRIC: Mood and affect normal. LABORATORY DATA: Not done today. ASSESSMENT AND PLAN: 1. End-stage renal disease, continue on dialysis TTS as tolerated. 2. Hypertension. 3. Anemia. 4. Hyponatremia. 5. Altered mentation. Continue on dialysis TTS as tolerated. Job ID: [id number]
--- NOTE | 2020-05-15 16:54 | PDOC.HOSPP ---
- Subjective Encounter Date: 05/15/20 Encounter Time: 16:52 Subjective: Mr. Benitez was seen today in follow-up of COVID pneumonia, and encephalopathy. he denies feeling short of breath. He is a bit less confused today. - Objective Vital Signs & Weight: Vital Signs (12 hours) Temp Pulse Pulse Pulse Pulse Resp BP 05/15/20 14:30 69 93 72 05/15/20 13:48 99.2 F 69 18 05/15/20 08:52 100.6 F H 87 18 05/15/20 08:18 05/15/20 05:42 98 05/15/20 05:27 192/86 H 05/15/20 05:25 98.9 F 95 18 BP BP BP BP BP Pulse Ox Pulse Ox 05/15/20 14:30 141/65 H 122/58 L 157/70 H 93 L 05/15/20 13:48 145/69 H 100 05/15/20 08:52 159/69 H 98 05/15/20 08:18 99 05/15/20 05:42 173/74 H 05/15/20 05:27 05/15/20 05:25 182/77 H 99 Pulse Ox 05/15/20 14:30 96 05/15/20 13:48 05/15/20 08:52 05/15/20 08:18 05/15/20 05:42 05/15/20 05:27 05/15/20 05:25 Weight Admit Weight 135 lb 14.287 oz Weight 142 lb 11.2 oz I&O: 05/14/20 05/15/20 05/16/20 06:59 06:59 06:59 Intake Total 600 30 Balance 600 30 Result Diagrams: 05/14/20 15:10 05/12/20 08:17 Additional Labs: Accuchecks 05/15/20 05/15/20 05/14/20 13:59 05:14 20:24 POC Glucose 133 H 84 90 Hospitalist ROS - Medication Medications: Active Medications Generic Name Dose Route Start Last Admin Trade Name Freq PRN Reason Stop Dose Admin Acetaminophen 650 mg 05/10/20 15:16 05/15/20 09:27 Tylenol PO 650 mg Q4H PRN Administration Headache/Fever/Mild Pain (1-3) Aspirin 81 mg 05/11/20 09:00 05/15/20 08:42 Ecotrin PO 81 mg DAILY CELIA Administration Atorvastatin Calcium 20 mg 05/11/20 21:00 05/14/20 20:14 Lipitor PO 20 mg HS CELIA Administration Clopidogrel Bisulfate 75 mg 05/11/20 09:00 05/15/20 08:42 Plavix PO 75 mg DAILY CELIA Administration Dexamethasone 6 mg 05/12/20 09:00 05/15/20 08:41 Decadron SLOW IVP 6 mg DAILY CELIA Administration Enoxaparin Sodium 60 mg 05/13/20 09:00 05/15/20 08:41 Lovenox SC 60 mg DAILY CELIA Administration Hydralazine HCl 10 mg 05/10/20 15:16 05/15/20 05:27 Apresoline SLOW IVP 10 mg Q4H PRN Administration SBP > 180 and HR < 70 Insulin Glargine 10 units/ 0.1 mls @ 0 mls/hr 05/13/20 21:00 05/14/20 20:14 Miscellaneous Medication SC Not Given HS [facility] Insulin Glargine 20 units/ 0.2 mls @ 0 mls/hr 05/14/20 09:00 05/15/20 08:42 Miscellaneous Medication SC 0.2 mls QAM CELIA Administration Insulin Human Lispro 0 units 05/14/20 00:33 05/14/20 04:57 Humalog SC 10 unit .MODERATE SLIDING SC PRN Administration Moderate Correctional Scale Insulin Human Lispro 0 units 05/14/20 00:33 05/14/20 00:47 Humalog SC 5 unit .BEDTIME SLIDING SC PRN Administration Bedtime Correctional Scale Metoprolol Tartrate 25 mg 05/11/20 09:00 05/15/20 08:42 Lopressor PO 25 mg BID CELIA Administration Pantoprazole Sodium 40 mg 05/11/20 09:00 05/15/20 08:42 Protonix PO 40 mg DAILY CELIA Administration Sevelamer Carbonate 1,600 mg 05/11/20 08:00 05/15/20 13:48 Renvela PO 1,600 mg TID-WM CELIA Administration Sodium Chloride 10 ml 05/11/20 09:00 05/15/20 08:43 Flush - Normal Saline IVF 10 ml Q12HR CELIA Administration - Exam Eye: PERRL, anicteric sclera Heart: RRR, no murmur, no gallops, no rubs Respiratory: rales (+ rales in both bases) Gastrointestinal: soft, non-tender, non-distended, normal bowel sounds, no palpable masses, no hepatomegaly Extremities: no cyanosis, no edema Hosp A/P (1) COVID-19 virus infection Code(s): U07.1 - COVID-19 Status: Acute (2) Metabolic encephalopathy Code(s): G93.41 - METABOLIC ENCEPHALOPATHY Status: Acute (3) End stage renal disease on dialysis Code(s): N18.6 - END STAGE RENAL DISEASE; Z99.2 - DEPENDENCE ON RENAL DIALYSIS Status: Chronic (4) Hypertension Code(s): I10 - ESSENTIAL (PRIMARY) HYPERTENSION Status: Chronic (5) CAD (coronary artery disease) Code(s): I25.10 - ATHSCL HEART DISEASE OF [place] CORONARY ARTERY W/O ANG PCTRS Status: Chronic - Plan * Metabolic encephalopathy- due to COVID pneumonia * Will continue supportive care * Continue Decadron IV * Inflammatory markers are trending up * DM- blood glucose is stable * CAD- stable- continue anticoagulation * ESRD- continue dialysis as per Nephrology * HTN- blood pressure is stable
--- NOTE | 2020-05-15 17:44 | PRG ---
DATE OF SERVICE: 05/15/2020 SUBJECTIVE: Angus Benitez does not appear as despondent as last time. He answers questions more easily today. Denies dyspnea or chest pain or headaches. No abdominal pain. OBJECTIVE: VITAL SIGNS: He has had a temperature of 100.6 recently, now 99.2, blood pressure 150/70, and O2 saturations are really good anywhere from 98% to 100% and this is on room air. LUNGS: Symmetric, clear breath sounds. HEART: S1, S2, regular rate. ABDOMEN: Soft, not distended or tender. EXTREMITIES: Moves extremities equally. LABORATORY DATA: Chemistry is not particularly remarkable. The ferritin shows a decrease to 2500 and the C-reactive protein is down to 8.9. The D-dimer has not been repeated. He is currently on Decadron, metoprolol, pantoprazole, Renvela. ASSESSMENT AND DISCUSSION: End-stage renal disease secondary to type 2 diabetes , COVID pneumonia, on Decadron with clear-cut improvement in O2 saturations. His mental state is a little better. We will go ahead and discontinue Decadron now , he has received already 4 days and on room air saturating at 98-100% Job ID: [id number] MTDD
[2020-05-15] MEDS: HumaLOG 300 UNITS/3 ML VIAL SC PRN (18:25)
[2020-05-15] MEDS: Atorvastatin Calcium 20 MG TAB PO SCH (21:35)
[2020-05-15] MEDS: Insulin Glargine 10 UNITS in Pre-Filled Syringe 1 EACH SC SCH (21:35)
[2020-05-16] MEDS: Enoxaparin Sodium 60 MG/0.6 ML SYRINGE SC SCH (09:22)
[2020-05-16] MEDS: Aspirin 81 mg Enteric Coated Tablet PO SCH (09:23)
[2020-05-16] MEDS: Metoprolol Tartrate 25 MG TAB PO SCH ×2 (09:23→20:20)
[2020-05-16] MEDS: Insulin Glargine 20 UNITS in Pre-Filled Syringe 1 EACH SC SCH (09:23)
[2020-05-16] MEDS: Sevelamer Carbonate 800 MG TAB PO SCH ×3 (09:23→18:14)
[2020-05-16] MEDS: Clopidogrel Bisulfate 75 MG TAB PO SCH (09:23)
--- NOTE | 2020-05-16 13:15 | PRG ---
DATE OF SERVICE: 05/16/2020 SUBJECTIVE: The patient is on COVID isolation. OBJECTIVE: VITAL SIGNS: Temperature 98.3, pulse 75, respiratory rate 20, blood pressure 168/60. LABORATORY DATA: Not done today. ASSESSMENT AND PLAN: 1. End-stage renal disease. We will check labs today. 2. Edema, controlled. 3. Hypertension. 4. Chronic anemia. Recheck labs today. Monitor labs. Continue dialysis as tolerated. Job ID: [id number]
[2020-05-16 15:46] LABS: Hemoglobin 9.3 g/dL (14.0-18.0); Platelet Count 144 thou/uL (130-400)
--- NOTE | 2020-05-16 17:29 | PDOC.HOSPP ---
- Subjective Encounter Date: 05/16/20 Encounter Time: 17:28 Subjective: Mr. Benitez was seen today in follow-up of COVID infection and encephalopathy. He is a little better today again. He will interact more. He denies trouble with breathing. His appetite is still poor however. - Objective Vital Signs & Weight: Vital Signs (12 hours) Temp Pulse Resp BP Pulse Ox 05/16/20 14:40 152/67 H 05/16/20 12:56 97.4 F L 71 24 H 173/74 H 100 05/16/20 09:46 98.3 F 75 22 H 168/60 H 99 Weight Admit Weight 135 lb 14.287 oz Weight 138 lb 12.8 oz I&O: 05/15/20 05/16/20 05/17/20 06:59 06:59 06:59 Intake Total 30 520 210 Balance 30 520 210 Result Diagrams: 05/16/20 15:25 05/12/20 08:17 Additional Labs: Accuchecks 05/16/20 05/16/20 05/16/20 14:29 12:55 05:06 POC Glucose 78 69 L 153 H 05/15/20 05/15/20 21:47 17:54 POC Glucose 238 H 207 H Hospitalist ROS - Medication Medications: Active Medications Generic Name Dose Route Start Last Admin Trade Name Freq PRN Reason Stop Dose Admin Acetaminophen 650 mg 05/10/20 15:16 05/15/20 09:27 Tylenol PO 650 mg Q4H PRN Administration Headache/Fever/Mild Pain (1-3) Aspirin 81 mg 05/11/20 09:00 05/16/20 09:23 Ecotrin PO 81 mg DAILY CELIA Administration Atorvastatin Calcium 20 mg 05/11/20 21:00 05/15/20 21:35 Lipitor PO 20 mg HS CELIA Administration Clopidogrel Bisulfate 75 mg 05/11/20 09:00 05/16/20 09:23 Plavix PO 75 mg DAILY CELIA Administration Enoxaparin Sodium 60 mg 05/13/20 09:00 05/16/20 09:22 Lovenox SC 60 mg DAILY CELIA Administration Hydralazine HCl 10 mg 05/10/20 15:16 05/15/20 05:27 Apresoline SLOW IVP 10 mg Q4H PRN Administration SBP > 180 and HR < 70 Insulin Glargine 10 units/ 0.1 mls @ 0 mls/hr 05/13/20 21:00 05/15/20 21:35 Miscellaneous Medication SC 0.1 mls HS CELIA Administration Insulin Glargine 20 units/ 0.2 mls @ 0 mls/hr 05/14/20 09:00 05/16/20 09:23 Miscellaneous Medication SC 0.2 mls QAM CELIA Administration Insulin Human Lispro 0 units 05/14/20 00:33 05/15/20 18:25 Humalog SC 4 unit .MODERATE SLIDING SC PRN Administration Moderate Correctional Scale Insulin Human Lispro 0 units 05/14/20 00:33 05/14/20 00:47 Humalog SC 5 unit .BEDTIME SLIDING SC PRN Administration Bedtime Correctional Scale Metoprolol Tartrate 25 mg 05/11/20 09:00 05/16/20 09:23 Lopressor PO 25 mg BID CELIA Administration Pantoprazole Sodium 40 mg 05/11/20 09:00 05/16/20 09:23 Protonix PO 40 mg DAILY CELIA Administration Sevelamer Carbonate 1,600 mg 05/11/20 08:00 05/16/20 12:43 Renvela PO Not Given TID-WM CELIA Sodium Chloride 10 ml 05/11/20 09:00 05/16/20 09:23 Flush - Normal Saline IVF 10 ml Q12HR CELIA Administration - Exam Eye: PERRL, anicteric sclera Heart: RRR, no murmur, no gallops, no rubs, normal peripheral pulses Respiratory: CTAB, no wheezes, no rales, no ronchi, normal chest expansion, no tachypnea, normal percussion Gastrointestinal: soft, non-tender, non-distended, normal bowel sounds Extremities: no cyanosis, no edema Hosp A/P (1) COVID-19 virus infection Code(s): U07.1 - COVID-19 Status: Acute (2) Metabolic encephalopathy Code(s): G93.41 - METABOLIC ENCEPHALOPATHY Status: Acute (3) End stage renal disease on dialysis Code(s): N18.6 - END STAGE RENAL DISEASE; Z99.2 - DEPENDENCE ON RENAL DIALYSIS Status: Chronic (4) Hypertension Code(s): I10 - ESSENTIAL (PRIMARY) HYPERTENSION Status: Chronic (5) CAD (coronary artery disease) Code(s): I25.10 - ATHSCL HEART DISEASE OF [place] CORONARY ARTERY W/O ANG PCTRS Status: Chronic - Plan * Metabolic encephalopathy- due to COVID pneumonia * Continue Decadron IV * Inflammatory markers may be beginning to plateau, and hopefully will begin a downward trend- continue to monitor * DM- blood glucose has been lower- will cut back on the Lantus dose * CAD- stable- continue anticoagulation * ESRD- continue dialysis as per Nephrology * HTN- blood pressure is now a bit labile- will monitor and continue PRN medications
[2020-05-16 17:44] LABS: Anion Gap 15 mmol/L (10-20); BUN (Urea Nitrogen) 61 mg/dL (8.4-25.7); Calc. Creatinine Clearance 9 mL/min (70-130); Calcium 9.3 mg/dL (7.8-10.44); Carbon Dioxide 30 mmol/L (23-31); Chloride 97 mmol/L (98-107); Estimated GFR-MDRD 8; Potassium 3.9 mmol/L (3.5-5.1); Sodium 138 mmol/L (136-145)
[2020-05-16 17:50] LABS: Glucose 54 mg/dL (83-110)
[2020-05-16] MEDS: Atorvastatin Calcium 20 MG TAB PO SCH (20:20)
[2020-05-16] MEDS: Insulin Glargine 5 UNITS in Pre-Filled Syringe 1 EACH SC SCH (22:15)
[2020-05-16] MEDS: hydrALAZINE 25 MG TAB PO PRN (23:47)
[2020-05-17] MEDS: hydrALAZINE 20 MG/ML VIAL SLOW IVP PRN (04:12)
[2020-05-17] MEDS: Acetaminophen 325 MG TAB PO PRN (04:27)
[2020-05-17] MEDS: Metoprolol Tartrate 25 MG TAB PO SCH ×2 (08:47→20:03)
[2020-05-17] MEDS: Sevelamer Carbonate 800 MG TAB PO SCH ×3 (08:47→18:46)
[2020-05-17] MEDS: Enoxaparin Sodium 60 MG/0.6 ML SYRINGE SC SCH (08:47)
[2020-05-17] MEDS: Aspirin 81 mg Enteric Coated Tablet PO SCH (08:48)
[2020-05-17] MEDS: Insulin Glargine 10 UNITS in Pre-Filled Syringe 1 EACH SC SCH (08:48)
[2020-05-17] MEDS: Clopidogrel Bisulfate 75 MG TAB PO SCH (08:48)
--- NOTE | 2020-05-17 12:19 | EKG ---
Test Reason : SOB FEVER Blood Pressure : / mmHG Vent. Rate : 088 BPM Atrial Rate : 088 BPM P-R Int : 000 ms QRS Dur : 088 ms QT Int : 394 ms P-R-T Axes : 000 -41 111 degrees QTc Int : 476 ms Accelerated Junctional rhythm Left axis deviation Left ventricular hypertrophy with repolarization abnormality Inferior infarct , age undetermined Abnormal ECG Confirmed by JUDSON SANTIAGO ([id number]), editorial director PEGGY DOMINGUEZ ([id number]) on 05/17/2020 12:18:54 PM Referred By: Confirmed By:JUDSON SANTIAGO
--- NOTE | 2020-05-17 16:06 | PDOC.HOSPP ---
- Subjective Encounter Date: 05/17/20 Encounter Time: 16:03 Subjective: Mr. Benitez was seen today in follow-up of COVID infection and metabolic encephalopathy. He is a bit confused again today. He is asking for his shirt and a jacket. He denies feeling short of breath. - Objective Vital Signs & Weight: Vital Signs (12 hours) Temp Pulse Resp BP BP BP Pulse Ox 05/17/20 12:00 98.3 F 66 20 151/68 H 100 05/17/20 08:00 98.3 F 68 24 H 163/72 H 98 05/17/20 04:36 74 147/64 H 05/17/20 04:12 75 05/17/20 04:08 98.2 F 71 20 188/79 H 100 Weight Admit Weight 135 lb 14.287 oz Weight 132 lb 15.02 oz I&O: 05/16/20 05/17/20 05/18/20 06:59 06:59 06:59 Intake Total 520 780 Output Total 1500 Balance 520 -720 Result Diagrams: 05/16/20 15:25 05/16/20 16:55 Additional Labs: Accuchecks 05/17/20 05/17/20 05/17/20 12:08 04:44 04:08 POC Glucose 98 85 61 L 05/16/20 05/16/20 05/16/20 20:35 18:30 17:24 POC Glucose 96 148 H 66 L Hospitalist ROS - Medication Medications: Active Medications Generic Name Dose Route Start Last Admin Trade Name Freq PRN Reason Stop Dose Admin Acetaminophen 650 mg 05/10/20 15:16 05/17/20 04:27 Tylenol PO 650 mg Q4H PRN Administration Headache/Fever/Mild Pain (1-3) Aspirin 81 mg 05/11/20 09:00 05/17/20 08:48 Ecotrin PO 81 mg DAILY CELIA Administration Atorvastatin Calcium 20 mg 05/11/20 21:00 05/16/20 20:20 Lipitor PO 20 mg HS CELIA Administration Clopidogrel Bisulfate 75 mg 05/11/20 09:00 05/17/20 08:48 Plavix PO 75 mg DAILY CELIA Administration Dextrose/Water 25 gm 05/14/20 00:33 05/16/20 17:56 Dextrose 50% SLOW IVP 25 gm PRN PRN Administration Hypoglycemia Enoxaparin Sodium 60 mg 05/13/20 09:00 05/17/20 08:47 Lovenox SC 60 mg DAILY CELIA Administration Hydralazine HCl 10 mg 05/10/20 15:16 05/17/20 04:12 Apresoline SLOW IVP 10 mg Q4H PRN Administration SBP > 180 and HR < 70 Hydralazine HCl 25 mg 05/15/20 07:34 05/16/20 23:47 Apresoline PO 25 mg TID PRN Administration SBP Greater Than 170 Insulin Glargine 5 units/ 0.05 mls @ 0 mls/hr 05/16/20 21:00 05/16/20 22:15 Miscellaneous Medication SC Not Given HS CELIA Insulin Glargine 10 units/ 0.1 mls @ 0 mls/hr 05/17/20 09:00 05/17/20 08:48 Miscellaneous Medication SC Not Given QAM CELIA Insulin Human Lispro 0 units 05/14/20 00:33 05/15/20 18:25 Humalog SC 4 unit .MODERATE SLIDING SC PRN Administration Moderate Correctional Scale Insulin Human Lispro 0 units 05/14/20 00:33 05/14/20 00:47 Humalog SC 5 unit .BEDTIME SLIDING SC PRN Administration Bedtime Correctional Scale Metoprolol Tartrate 25 mg 05/11/20 09:00 05/17/20 08:47 Lopressor PO 25 mg BID CELIA Administration Pantoprazole Sodium 40 mg 05/11/20 09:00 05/17/20 08:47 Protonix PO 40 mg DAILY CELIA Administration Sevelamer Carbonate 1,600 mg 05/11/20 08:00 05/17/20 11:46 Renvela PO 1,600 mg TID-WM CELIA Administration Sodium Chloride 10 ml 05/11/20 09:00 05/17/20 08:49 Flush - Normal Saline IVF 10 ml Q12HR CELIA Administration - Exam Eye: PERRL, anicteric sclera Heart: RRR, no murmur, no gallops, no rubs, normal peripheral pulses Respiratory: CTAB, no wheezes, no rales, normal chest expansion Gastrointestinal: soft, non-tender, non-distended, normal bowel sounds, no palpable masses Extremities: no cyanosis, no edema Hosp A/P (1) COVID-19 virus infection Code(s): U07.1 - COVID-19 Status: Acute (2) Metabolic encephalopathy Code(s): G93.41 - METABOLIC ENCEPHALOPATHY Status: Acute (3) End stage renal disease on dialysis Code(s): N18.6 - END STAGE RENAL DISEASE; Z99.2 - DEPENDENCE ON RENAL DIALYSIS Status: Chronic (4) Hypertension Code(s): I10 - ESSENTIAL (PRIMARY) HYPERTENSION Status: Chronic (5) CAD (coronary artery disease) Code(s): I25.10 - ATHSCL HEART DISEASE OF [place] CORONARY ARTERY W/O ANG PCTRS Status: Chronic - Plan * Metabolic encephalopathy- due to COVID pneumonia * Continue Decadron IV * Inflammatory markers * Continue other supportive care * DM- blood glucose is stable * CAD- stable- patient is confused and at times tryng to get out of bed- will change to Heparin SC( DVT prophylaxis dose ) * ESRD- continue dialysis as per Nephrology * HTN- blood pressure is now a bit labile- will monitor and continue PRN medications
--- NOTE | 2020-05-17 16:33 | PRG ---
DATE OF SERVICE: SUBJECTIVE: The patient is on COVID isolation. OBJECTIVE: VITAL SIGNS: Temperature 98.3, pulse , respiratory rate 20, blood pressure 151/60. LABORATORY DATA: Not done today. ASSESSMENT AND PLAN: 1. End-stage renal disease. Continue dialysis. 2. Edema, controlled. 3. Hypertension. 4. Anemia of chronic disease. 5. Monitor labs. Continue dialysis as tolerated on Monday, , Monday. Job ID: [id number]
[2020-05-17] MEDS: Atorvastatin Calcium 20 MG TAB PO SCH (20:03)
[2020-05-17] MEDS: Heparin 5,000 UNITS/ML VIAL SC SCH (20:04)
[2020-05-17] MEDS: Insulin Glargine 5 UNITS in Pre-Filled Syringe 1 EACH SC SCH (20:52)
[2020-05-17] MEDS: hydrALAZINE 25 MG TAB PO PRN (23:41)
[2020-05-18] MEDS: hydrALAZINE 20 MG/ML VIAL SLOW IVP PRN ×4 (04:13→20:45)
[2020-05-18] MEDS: Insulin Glargine 10 UNITS in Pre-Filled Syringe 1 EACH SC SCH (08:35)
[2020-05-18] MEDS: Metoprolol Tartrate 25 MG TAB PO SCH ×2 (09:55→20:17)
[2020-05-18] MEDS: Clopidogrel Bisulfate 75 MG TAB PO SCH (09:55)
[2020-05-18] MEDS: Sevelamer Carbonate 800 MG TAB PO SCH ×3 (09:55→16:41)
[2020-05-18] MEDS: Heparin 5,000 UNITS/ML VIAL SC SCH ×2 (09:56→20:17)
[2020-05-18] MEDS: Aspirin 81 mg Enteric Coated Tablet PO SCH (09:56)
--- NOTE | 2020-05-18 14:01 | PRG ---
DATE OF SERVICE: 05/18/2020 SUBJECTIVE: A 79-year-old gentleman, being seen for end-stage renal disease. The patient denies any nausea, vomiting, or chest pain. OBJECTIVE: GENERAL: The patient is awake and alert. VITAL SIGNS: Afebrile, pulse 75, breathing at 16, blood pressure 152/67. HEENT: Head normocephalic and atraumatic. Eyes intact, no ulcers. Nose intact, no ulcers. Ears intact, no ulcers. NECK: Supple. No JVD. CHEST: Symmetrical and clear. CARDIOVASCULAR: Shows S1 and S2, no rub, no murmur. GASTROINTESTINAL: Abdomen is soft, bowel sounds positive. EXTREMITIES: Show no edema or ulcers. SKIN: Shows no rash or petechiae. MUSCULOSKELETAL: Shows no joint swelling or stiffness. GENITOURINARY: Shows no Ruiz or CVA tenderness. NEUROLOGIC: Motor intact. Cranial nerves intact. ASSESSMENT AND PLAN: 1. End-stage renal disease, plan dialysis. 2. Hypertension, stable. 3. Anemia, stable. Medication based on GFR appropriate. Job ID: [id number]
--- NOTE | 2020-05-18 14:48 | PDOC.HOSPP ---
- Subjective Encounter Date: 05/18/20 Encounter Time: 11:00 Subjective: no sob or chest pain does not interact much is not eating much per staff - Objective Vital Signs & Weight: Vital Signs (12 hours) Temp Pulse Resp BP BP Pulse Ox 05/18/20 11:52 152/70 H 05/18/20 11:05 98.6 F 71 18 152/67 H 100 05/18/20 10:39 98.3 F 78 20 161/69 H 100 05/18/20 04:00 98.9 F 77 20 184/80 H 96 Weight Admit Weight 135 lb 14.287 oz Weight 132 lb 15.02 oz I&O: 05/17/20 05/18/20 05/19/20 06:59 06:59 06:59 Intake Total 780 740 Output Total 1500 0 Balance -720 740 Result Diagrams: 05/16/20 15:25 05/16/20 16:55 Additional Labs: Accuchecks 05/18/20 05/17/20 05/17/20 04:11 20:19 19:00 POC Glucose 108 118 H 104 Hospitalist ROS - Medication Medications: Active Medications Generic Name Dose Route Start Last Admin Trade Name Freq PRN Reason Stop Dose Admin Acetaminophen 650 mg 05/10/20 15:16 05/17/20 04:27 Tylenol PO 650 mg Q4H PRN Administration Headache/Fever/Mild Pain (1-3) Aspirin 81 mg 05/11/20 09:00 05/18/20 09:56 Ecotrin PO 81 mg DAILY CELIA Administration Atorvastatin Calcium 20 mg 05/11/20 21:00 05/17/20 20:03 Lipitor PO 20 mg HS CELIA Administration Clopidogrel Bisulfate 75 mg 05/11/20 09:00 05/18/20 09:55 Plavix PO 75 mg DAILY CELIA Administration Dextrose/Water 25 gm 05/14/20 00:33 05/16/20 17:56 Dextrose 50% SLOW IVP 25 gm PRN PRN Administration Hypoglycemia Heparin Sodium (Porcine) 5,000 units 05/17/20 21:00 05/18/20 09:56 Heparin SC 5,000 units BID CELIA Administration Hydralazine HCl 10 mg 05/10/20 15:16 05/18/20 10:16 Apresoline SLOW IVP 10 mg Q4H PRN Administration SBP > 180 and HR < 70 Hydralazine HCl 25 mg 06/26/20 07:34 05/17/20 23:41 Apresoline PO 25 mg TID PRN Administration SBP Greater Than 170 Insulin Glargine 5 units/ 0.05 mls @ 0 mls/hr 05/16/20 21:00 05/17/20 20:52 Miscellaneous Medication SC Not Given HS CELIA Insulin Glargine 10 units/ 0.1 mls @ 0 mls/hr 05/17/20 09:00 05/18/20 08:35 Miscellaneous Medication SC Not Given QAM CELIA Insulin Human Lispro 0 units 05/14/20 00:33 05/15/20 18:25 Humalog SC 4 unit .MODERATE SLIDING SC PRN Administration Moderate [place] Scale Insulin Human Lispro 0 units 05/14/20 00:33 05/14/20 00:47 Humalog SC 5 unit .BEDTIME SLIDING SC PRN Administration Bedtime Correctional Scale Metoprolol Tartrate 25 mg 05/11/20 09:00 05/18/20 09:55 Lopressor PO 25 mg BID CELIA Administration Pantoprazole Sodium 40 mg 05/11/20 09:00 05/18/20 09:55 Protonix PO 40 mg DAILY CELIA Administration Sevelamer Carbonate 1,600 mg 05/11/20 08:00 05/18/20 13:08 Renvela PO 1,600 mg TID-WM CELIA Administration Sodium Chloride 10 ml 05/11/20 09:00 05/18/20 09:57 Flush - Normal Saline IVF 10 ml Q12HR CELIA Administration - Exam Eye: PERRL, anicteric sclera ENT: no oropharyngeal lesions, moist mucosa Neck: supple, no JVD Heart: RRR, no murmur Respiratory: no wheezes, no rales Gastrointestinal: soft, non-tender, non-distended, normal bowel sounds Extremities: no cyanosis, no edema Neurological: cranial nerve grossly intact, no focal deficits Hosp A/P (1) Pneumonia due to COVID-19 virus Code(s): U07.1 - COVID-19; J12.89 - OTHER VIRAL PNEUMONIA Status: Acute (2) Metabolic encephalopathy Code(s): G93.41 - METABOLIC ENCEPHALOPATHY Status: Acute (3) CAD (coronary artery disease) Code(s): I25.10 - ATHSCL HEART DISEASE OF [place] CORONARY ARTERY W/O ANG PCTRS Status: Chronic Qualifiers: Coronary Disease-Associated Artery/Lesion type: [place] artery [place] vs. transplanted heart: [place] heart Associated angina: without angina Qualified Code(s): I25.10 - Atherosclerotic heart disease of [place] coronary artery without angina pectoris (4) End stage renal disease on dialysis Code(s): N18.6 - END STAGE RENAL DISEASE; Z99.2 - DEPENDENCE ON RENAL DIALYSIS Status: Chronic (5) Hypertension Code(s): I10 - ESSENTIAL (PRIMARY) HYPERTENSION Status: Chronic Qualifiers: Hypertension type: essential hypertension Qualified Code(s): I10 - Essential (primary) hypertension - Plan is on asp, lipitor, plavix, lantus, lopressor, protonix and renvela is off steroids dc plan is to home with HH, speech, PT and OT per CM prognosis guarded trial of reg diet to see if he eats well?
[2020-05-18 15:11] LABS: Platelet Count 120 thou/uL (130-400)
[2020-05-18] MEDS: Atorvastatin Calcium 20 MG TAB PO SCH (20:17)
[2020-05-18] MEDS: Insulin Glargine 5 UNITS in Pre-Filled Syringe 1 EACH SC SCH (22:02)
[2020-05-19] MEDS: hydrALAZINE 20 MG/ML VIAL SLOW IVP PRN (03:08)
[2020-05-19] MEDS: Metoprolol Tartrate 25 MG TAB PO SCH ×2 (09:08→23:13)
[2020-05-19] MEDS: Clopidogrel Bisulfate 75 MG TAB PO SCH (09:08)
[2020-05-19] MEDS: Sevelamer Carbonate 800 MG TAB PO SCH ×3 (09:08→17:38)
[2020-05-19] MEDS: Insulin Glargine 10 UNITS in Pre-Filled Syringe 1 EACH SC SCH (09:09)
[2020-05-19] MEDS: Aspirin 81 mg Enteric Coated Tablet PO SCH (09:09)
[2020-05-19] MEDS: Heparin 5,000 UNITS/ML VIAL SC SCH ×2 (09:09→23:13)
[2020-05-19] MEDS: Acetaminophen 325 MG TAB PO PRN ×2 (12:37→17:38)
--- NOTE | 2020-05-19 13:56 | PRG ---
DATE OF SERVICE: 05/19/2020 SUBJECT: A 79-year-old gentleman being seen for end-stage renal disease. The patient denied any nausea, vomiting, or chest pain. OBJECTIVE: GENERAL: The patient is awake and alert. VITAL SIGNS: Afebrile, pulse 99, breathing 16, blood pressure 120/70. HEENT: Head normocephalic and atraumatic. Eyes intact, no ulcers. Nose intact, no ulcers. Ears intact, no ulcers. NECK: Supple. No JVD. CHEST: Symmetrical and clear. CARDIOVASCULAR: Shows S1 and S2, no rub, no murmur. GASTROINTESTINAL: Abdomen is soft, bowel sounds positive. EXTREMITIES: Show no edema or ulcers. SKIN: Shows no rash or petechiae. MUSCULOSKELETAL: Shows no joint swelling or stiffness. GENITOURINARY: Shows no Ruiz or CVA tenderness. NEUROLOGIC: Motor intact. Cranial nerves intact. LABORATORY DATA: Hemoglobin 9. ASSESSMENT AND PLAN: 1. Stage 3 chronic renal disease, plan dialysis. 2. Hypertension, stable. 3. Anemia, stable. 4. Medication based on GFR appropriate. Job ID: [id number]
--- NOTE | 2020-05-19 14:21 | PDOC.HOSPP ---
- Subjective Encounter Date: 05/19/20 Encounter Time: 09:45 Subjective: no sob, not fully oriented - Objective Vital Signs & Weight: Vital Signs (12 hours) Temp Pulse Resp BP BP BP BP 05/19/20 12:37 98.5 F 71 16 156/67 H 05/19/20 09:20 120/70 05/19/20 09:08 99.0 F 80 16 178/77 H 05/19/20 05:10 75 178/78 H 05/19/20 03:08 74 193/76 H 05/19/20 03:06 98.2 F 74 18 193/76 H Pulse Ox 05/19/20 12:37 98 05/19/20 09:20 05/19/20 09:08 99 05/19/20 05:10 05/19/20 03:08 05/19/20 03:06 100 Weight Admit Weight 135 lb 14.287 oz Weight 139 lb 1.787 oz I&O: 05/18/20 05/19/20 05/20/20 06:59 06:59 06:59 Intake Total 740 440 170 Output Total 0 0 Balance 740 440 170 Result Diagrams: 05/18/20 15:03 05/16/20 16:55 Additional Labs: Accuchecks 05/19/20 05/19/20 05/18/20 12:20 05:10 20:27 POC Glucose 129 H 135 H 152 H 05/18/20 05/18/20 05/18/20 16:52 13:17 13:17 POC Glucose 149 H 156 H 156 H 05/18/20 05/18/20 05/18/20 13:17 13:17 13:17 POC Glucose 156 H 156 H 156 H 05/18/20 13:17 POC Glucose 156 H Hospitalist ROS - Medication Medications: Active Medications Generic Name Dose Route Start Last Admin Trade Name Freq PRN Reason Stop Dose Admin Acetaminophen 650 mg 05/10/20 15:16 05/19/20 12:37 Tylenol PO 650 mg Q4H PRN Administration Headache/Fever/Mild Pain (1-3) Aspirin 81 mg 05/11/20 09:00 05/19/20 09:09 Ecotrin PO 81 mg DAILY CELIA Administration Atorvastatin Calcium 20 mg 05/11/20 21:00 05/18/20 20:17 Lipitor PO 20 mg HS CELIA Administration Clopidogrel Bisulfate 75 mg 05/11/20 09:00 05/19/20 09:08 Plavix PO 75 mg DAILY CELIA Administration Dextrose/Water 25 gm 05/14/20 00:33 05/16/20 17:56 Dextrose 50% SLOW IVP 25 gm PRN PRN Administration Hypoglycemia Heparin Sodium (Porcine) 5,000 units 05/17/20 21:00 05/19/20 09:09 Heparin SC 5,000 units BID CELIA Administration Hydralazine HCl 10 mg 05/10/20 15:16 05/19/20 03:08 Apresoline SLOW IVP 10 mg Q4H PRN Administration SBP > 180 and HR < 70 Hydralazine HCl 25 mg 05/15/20 07:34 05/17/20 23:41 Apresoline PO 25 mg TID PRN Administration SBP Greater Than 170 Insulin Glargine 5 units/ 0.05 mls @ 0 mls/hr 05/16/20 21:00 05/18/20 22:02 Miscellaneous Medication SC Not Given HS CELIA Insulin Glargine 10 units/ 0.1 mls @ 0 mls/hr 05/17/20 09:00 05/19/20 09:09 Miscellaneous Medication SC 0.1 mls QAM CELIA Administration Insulin Human Lispro 0 units 05/14/20 00:33 05/15/20 18:25 Humalog SC 4 unit .MODERATE SLIDING SC PRN Administration Moderate Correctional Scale Insulin Human Lispro 0 units 05/14/20 00:33 05/14/20 00:47 Humalog SC 5 unit .BEDTIME SLIDING SC PRN Administration Bedtime Correctional Scale Metoprolol Tartrate 25 mg 05/11/20 09:00 05/19/20 09:08 Lopressor PO 25 mg BID CELIA Administration Pantoprazole Sodium 40 mg 05/11/20 09:00 05/19/20 09:08 Protonix PO 40 mg DAILY CELIA Administration Sevelamer Carbonate 1,600 mg 05/11/20 08:00 05/19/20 12:37 Renvela PO 1,600 mg TID-WM CELIA Administration Sodium Chloride 10 ml 05/11/20 09:00 05/19/20 09:10 Flush - Normal Saline IVF 10 ml Q12HR CELIA Administration - Exam General Appearance: awake alert Eye: PERRL, anicteric sclera ENT: no oropharyngeal lesions, moist mucosa Neck: supple, no JVD Heart: RRR, no murmur Respiratory: no wheezes, no rales Gastrointestinal: soft, non-tender, non-distended, normal bowel sounds Extremities: no cyanosis, no edema Neurological: cranial nerve grossly intact, no focal deficits Hosp A/P (1) Pneumonia due to COVID-19 virus Code(s): U07.1 - COVID-19; J12.89 - OTHER VIRAL PNEUMONIA Status: Acute (2) Metabolic encephalopathy Code(s): G93.41 - METABOLIC ENCEPHALOPATHY Status: Acute (3) CAD (coronary artery disease) Code(s): I25.10 - ATHSCL HEART DISEASE OF [place] CORONARY ARTERY W/O ANG PCTRS Status: Chronic Qualifiers: Coronary Disease-Associated Artery/Lesion type: [place] artery [place] vs. transplanted heart: [place] heart Associated angina: without angina Qualified Code(s): I25.10 - Atherosclerotic heart disease of [place] coronary artery without angina pectoris (4) End stage renal disease on dialysis Code(s): N18.6 - END STAGE RENAL DISEASE; Z99.2 - DEPENDENCE ON RENAL DIALYSIS Status: Chronic (5) Hypertension Code(s): I10 - ESSENTIAL (PRIMARY) HYPERTENSION Status: Chronic Qualifiers: Hypertension type: essential hypertension Qualified Code(s): I10 - Essential (primary) hypertension - Plan is on asp, lipitor, plavix, lantus, lopressor, protonix and renvela is off steroids dc plan is to home with HH, speech, PT and OT per CM, not sure if he can manage himself at home? prognosis guarded trial of reg diet is on.
[2020-05-19] MEDS: Atorvastatin Calcium 20 MG TAB PO SCH (23:13)
[2020-05-19] MEDS: Insulin Glargine 5 UNITS in Pre-Filled Syringe 1 EACH SC SCH (23:39)
[2020-05-20 05:14] LABS: #Eosinphils 0.1 thou/uL (0.0-0.7); #Lymphocytes 0.7 thou/uL (1.20-3.40); #Monocytes 0.3 thou/uL (0.11-0.59); #Neutrophils 2.7 thou/uL (1.40-6.50); %Basophils 0.1 % (0.0-1.0); %Eosinophils 2.2 % (0.0-10.0); %Lymphocytes 18.8 % (21.0-51.0); %Monocytes 7.3 % (0.0-10.0); %Neutrophils 71.6 % (42.0-75.0); Hemoglobin 8.2 g/dL (14.0-18.0); Mean Corpuscular HGB CONC 32.2 g/dL (32.0-36.0); Mean Platelet Volume 9.6 fL (7.4-10.4); Platelet Count 161 thou/uL (130-400); Red Blood Cell (RBC) Count 2.49 mill/uL (4.70-6.10); White Blood Cell (WBC) Count 3.8 thou/uL (4.8-10.8)
[2020-05-20 05:32] LABS: Anion Gap 12 mmol/L (10-20); BUN (Urea Nitrogen) 30 mg/dL (8.4-25.7); Calc. Creatinine Clearance 13 mL/min (70-130); Calcium 8.9 mg/dL (7.8-10.44); Carbon Dioxide 28 mmol/L (23-31); Chloride 96 mmol/L (98-107); Estimated GFR-MDRD 14; Glucose 146 mg/dL (83-110); Potassium 4.3 mmol/L (3.5-5.1); Sodium 132 mmol/L (136-145)
[2020-05-20] MEDS: Heparin 5,000 UNITS/ML VIAL SC SCH ×2 (08:54→21:41)
[2020-05-20] MEDS: Clopidogrel Bisulfate 75 MG TAB PO SCH (08:55)
[2020-05-20] MEDS: Sevelamer Carbonate 800 MG TAB PO SCH ×3 (08:55→18:23)
[2020-05-20] MEDS: Metoprolol Tartrate 25 MG TAB PO SCH ×2 (08:55→21:41)
[2020-05-20] MEDS: Aspirin 81 mg Enteric Coated Tablet PO SCH (08:55)
[2020-05-20] MEDS: Insulin Glargine 10 UNITS in Pre-Filled Syringe 1 EACH SC SCH (09:56)
--- NOTE | 2020-05-20 13:05 | PDOC.HOSPP ---
- Subjective Encounter Date: 05/20/20 Encounter Time: 10:00 Subjective: awake, not in distress is not eating much - Objective Vital Signs & Weight: Vital Signs (12 hours) Temp Pulse Resp BP Pulse Ox 05/20/20 11:34 98.6 F 65 40 H 168/72 H 99 05/20/20 09:09 98.9 F 72 24 H 177/77 H 96 05/20/20 04:00 99.0 F 75 16 160/70 H 93 L Weight Admit Weight 135 lb 14.287 oz Weight 137 lb 3.2 oz I&O: 05/19/20 05/20/20 05/21/20 06:59 06:59 06:59 Intake Total 440 295 Output Total 0 0 Balance 440 295 Result Diagrams: 05/20/20 04:49 05/20/20 04:49 Additional Labs: Accuchecks 05/20/20 05/19/20 05/19/20 05:19 23:23 15:30 POC Glucose 154 H 110 106 Hospitalist ROS - Medication Medications: Active Medications Generic Name Dose Route Start Last Admin Trade Name Freq PRN Reason Stop Dose Admin Acetaminophen 650 mg 05/10/20 15:16 05/19/20 17:38 Tylenol PO 650 mg Q4H PRN Administration Headache/Fever/Mild Pain (1-3) Aspirin 81 mg 05/11/20 09:00 05/20/20 08:55 Ecotrin PO 81 mg DAILY CELIA Administration Atorvastatin Calcium 20 mg 05/11/20 21:00 05/19/20 23:13 Lipitor PO 20 mg HS CELIA Administration Clopidogrel Bisulfate 75 mg 05/11/20 09:00 05/20/20 08:55 Plavix PO 75 mg DAILY CELIA Administration Dextrose/Water 25 gm 05/14/20 00:33 05/16/20 17:56 Dextrose 50% SLOW IVP 25 gm PRN PRN Administration Hypoglycemia Heparin Sodium (Porcine) 5,000 units 05/17/20 21:00 05/20/20 08:54 Heparin SC 5,000 units BID CELIA Administration Hydralazine HCl 10 mg 05/10/20 15:16 05/19/20 03:08 Apresoline SLOW IVP 10 mg Q4H PRN Administration SBP > 180 and HR < 70 Hydralazine HCl 25 mg 05/15/20 07:34 05/17/20 23:41 Apresoline PO 25 mg TID PRN Administration SBP Greater Than 170 Insulin Glargine 5 units/ 0.05 mls @ 0 mls/hr 05/16/20 21:00 05/19/20 23:39 Miscellaneous Medication SC Not Given HS CELIA Insulin Glargine 10 units/ 0.1 mls @ 0 mls/hr 05/17/20 09:00 05/20/20 09:56 Miscellaneous Medication SC Not Given QAM CELIA Insulin Human Lispro 0 units 05/14/20 00:33 05/15/20 18:25 Humalog SC 4 unit .MODERATE SLIDING SC PRN Administration Moderate Correctional Scale Insulin Human Lispro 0 units 05/14/20 00:33 05/14/20 00:47 Humalog SC 5 unit .BEDTIME SLIDING SC PRN Administration Bedtime Correctional Scale Metoprolol Tartrate 25 mg 05/11/20 09:00 05/20/20 08:55 Lopressor PO 25 mg BID CELIA Administration Pantoprazole Sodium 40 mg 05/11/20 09:00 05/20/20 08:55 Protonix PO 40 mg DAILY CELIA Administration Sevelamer Carbonate 1,600 mg 05/11/20 08:00 05/20/20 12:38 Renvela PO Not Given TID-WM CELIA Sodium Chloride 10 ml 05/11/20 09:00 05/20/20 08:55 Flush - Normal Saline IVF 10 ml Q12HR CELIA Administration - Exam General Appearance: awake alert Eye: anicteric sclera ENT: no oropharyngeal lesions, dry oral mucosa Neck: supple, no JVD Heart: RRR, no murmur Respiratory: no wheezes, no rales Gastrointestinal: soft, non-tender, non-distended, normal bowel sounds Extremities: no cyanosis, no edema Neurological: cranial nerve grossly intact, no focal deficits Hosp A/P (1) Pneumonia due to COVID-19 virus Code(s): U07.1 - COVID-19; J12.89 - OTHER VIRAL PNEUMONIA Status: Acute (2) Metabolic encephalopathy Code(s): G93.41 - METABOLIC ENCEPHALOPATHY Status: Acute (3) CAD (coronary artery disease) Code(s): I25.10 - ATHSCL HEART DISEASE OF [place] CORONARY ARTERY W/O ANG PCTRS Status: Chronic Qualifiers: Coronary Disease-Associated Artery/Lesion type: [place] artery [place] vs. transplanted heart: [place] heart Associated angina: without angina Qualified Code(s): I25.10 - Atherosclerotic heart disease of [place] coronary artery without angina pectoris (4) End stage renal disease on dialysis Code(s): N18.6 - END STAGE RENAL DISEASE; Z99.2 - DEPENDENCE ON RENAL DIALYSIS Status: Chronic (5) Hypertension Code(s): I10 - ESSENTIAL (PRIMARY) HYPERTENSION Status: Chronic Qualifiers: Hypertension type: essential hypertension Qualified Code(s): I10 - Essential (primary) hypertension - Plan is on asp, lipitor, plavix, lantus, lopressor, protonix and renvela is off steroids dc plan is to home with HH, speech, PT and OT per CM, not sure if he can manage himself at home? prognosis guarded trial of reg diet is on. May dc home if his outpt HD is arranged. At baseline he is wheel chair bound per staff
[2020-05-20 13:14] VITALS: BMI 18.3
[2020-05-20 15:25] LABS: Hemoglobin 8.2 g/dL (14.0-18.0); Platelet Count 154 thou/uL (130-400)
[2020-05-20] MEDS: hydrALAZINE 20 MG/ML VIAL SLOW IVP PRN (16:03)
[2020-05-20] MEDS: Atorvastatin Calcium 20 MG TAB PO SCH (21:41)
[2020-05-20] MEDS: Insulin Glargine 5 UNITS in Pre-Filled Syringe 1 EACH SC SCH (23:12)
[2020-05-21] MEDS: Heparin 5,000 UNITS/ML VIAL SC SCH (08:28)
[2020-05-21] MEDS: Metoprolol Tartrate 25 MG TAB PO SCH (08:28)
[2020-05-21] MEDS: Sevelamer Carbonate 800 MG TAB PO SCH ×2 (08:28→13:54)
[2020-05-21] MEDS: Aspirin 81 mg Enteric Coated Tablet PO SCH (08:28)
[2020-05-21] MEDS: Insulin Glargine 10 UNITS in Pre-Filled Syringe 1 EACH SC SCH (08:28)
[2020-05-21] MEDS: Clopidogrel Bisulfate 75 MG TAB PO SCH (08:28)
[2020-05-21] MEDS ORDERED: EPOETIN ALFA-EPBX (ESRD) 4,000 UNIT/ML VIAL IVP SCH (12:00)
[2020-05-21 13:57] VITALS: BP 121/53; TEMP 97.7
--- NOTE | 2020-05-21 15:14 | PDOC.HOSPP ---
- Subjective Encounter Date: 05/21/20 Encounter Time: 09:15 Subjective: is getting HD, awakens easily not in distress still eating poorly - Objective Vital Signs & Weight: Vital Signs (12 hours) Temp Pulse Resp BP Pulse Ox 05/21/20 13:00 97.7 F 73 14 121/53 L 100 05/21/20 08:40 98.3 F 73 16 189/80 H 100 05/21/20 04:23 99.3 F 68 28 H 181/74 H 100 Weight Admit Weight 135 lb 14.287 oz Weight 134 lb 9.6 oz I&O: 05/20/20 05/21/20 05/22/20 06:59 06:59 06:59 Intake Total 295 210 Output Total 0 0 Balance 295 210 Result Diagrams: 05/20/20 15:07 05/20/20 04:49 Additional Labs: Accuchecks 05/21/20 05/21/20 05/20/20 13:57 04:23 21:57 POC Glucose 96 133 H 136 H 05/20/20 15:22 POC Glucose 140 H Hospitalist ROS - Medication Medications: Active Medications Generic Name Dose Route Start Last Admin Trade Name Freq PRN Reason Stop Dose Admin Acetaminophen 650 mg 05/10/20 15:16 05/19/20 17:38 Tylenol PO 650 mg Q4H PRN Administration Headache/Fever/Mild Pain (1-3) Aspirin 81 mg 05/11/20 09:00 05/21/20 08:28 Ecotrin PO 81 mg DAILY CELIA Administration Atorvastatin Calcium 20 mg 05/11/20 21:00 05/20/20 21:41 Lipitor PO 20 mg HS CELIA Administration Clopidogrel Bisulfate 75 mg 05/11/20 09:00 05/21/20 08:28 Plavix PO 75 mg DAILY CELIA Administration Dextrose/Water 25 gm 05/14/20 00:33 05/16/20 17:56 Dextrose 50% SLOW IVP 25 gm PRN PRN Administration Hypoglycemia Epoetin Chang-epbx 8,000 unit 05/21/20 12:00 05/21/20 12:08 Retacrit IVP 8,000 unit TuThSa@1200 CELIA Administration Heparin Sodium (Porcine) 5,000 units 05/17/20 21:00 05/21/20 08:28 Heparin SC 5,000 units BID CELIA Administration Hydralazine HCl 10 mg 05/10/20 15:16 05/20/20 16:03 Apresoline SLOW IVP 10 mg Q4H PRN Administration SBP > 180 and HR < 70 Hydralazine HCl 25 mg 05/15/20 07:34 05/17/20 23:41 Apresoline PO 25 mg TID PRN Administration SBP Greater Than 170 Insulin Glargine 5 units/ 0.05 mls @ 0 mls/hr 05/16/20 21:00 05/20/20 23:12 Miscellaneous Medication SC Not Given HS CELIA Insulin Glargine 10 units/ 0.1 mls @ 0 mls/hr 05/17/20 09:00 05/21/20 08:28 Miscellaneous Medication SC Not Given QAM CELIA Insulin Human Lispro 0 units 05/14/20 00:33 05/15/20 18:25 Humalog SC 4 unit .MODERATE SLIDING SC PRN Administration Moderate [place] Scale Insulin Human Lispro 0 units 05/14/20 00:33 05/14/20 00:47 Humalog SC 5 unit .BEDTIME SLIDING SC PRN Administration Bedtime Correctional Scale Metoprolol Tartrate 25 mg 05/11/20 09:00 05/21/20 08:28 Lopressor PO 25 mg BID CELIA Administration Pantoprazole Sodium 40 mg 05/11/20 09:00 05/21/20 08:28 Protonix PO 40 mg DAILY CELIA Administration Sevelamer Carbonate 1,600 mg 05/11/20 08:00 05/21/20 13:54 Renvela PO Not Given TID-WM CELIA Sodium Chloride 10 ml 05/11/20 09:00 05/21/20 08:28 Flush - Normal Saline IVF 10 ml Q12HR CELIA Administration - Exam General Appearance: ill appearing Eye: PERRL, anicteric sclera ENT: no oropharyngeal lesions, moist mucosa Neck: symmetric, no JVD Heart: RRR, no murmur Respiratory: no wheezes, no rales Gastrointestinal: soft, non-tender, non-distended, normal bowel sounds Extremities: no cyanosis, no edema Neurological: cranial nerve grossly intact, no new deficit Hosp A/P (1) Pneumonia due to COVID-19 virus Code(s): U07.1 - COVID-19; J12.89 - OTHER VIRAL PNEUMONIA Status: Acute (2) Metabolic encephalopathy Code(s): G93.41 - METABOLIC ENCEPHALOPATHY Status: Acute (3) CAD (coronary artery disease) Code(s): I25.10 - ATHSCL HEART DISEASE OF [place] CORONARY ARTERY W/O ANG PCTRS Status: Chronic Qualifiers: Coronary Disease-Associated Artery/Lesion type: [place] artery [place] vs. transplanted heart: [place] heart Associated angina: without angina Qualified Code(s): I25.10 - Atherosclerotic heart disease of [place] coronary artery without angina pectoris (4) End stage renal disease on dialysis Code(s): N18.6 - END STAGE RENAL DISEASE; Z99.2 - DEPENDENCE ON RENAL DIALYSIS Status: Chronic (5) Hypertension Code(s): I10 - ESSENTIAL (PRIMARY) HYPERTENSION Status: Chronic Qualifiers: Hypertension type: essential hypertension Qualified Code(s): I10 - Essential (primary) hypertension - Plan is on asp, lipitor, plavix, lantus, lopressor, protonix and renvela is off steroids dc plan is to home with HH, speech, PT and OT per CM, not sure if he can manage himself at home? family are still contemplating if he needs to go to snf? prognosis guarded trial of reg diet is on. Is medically stable for dc At baseline he is wheel chair bound per staff
--- NOTE | 2020-05-22 18:08 | DIS ---
DATE OF ADMISSION: 05/10/2020 DATE OF DISCHARGE: 05/21/2020 DISCHARGE DISPOSITION: To home. PRIMARY DISCHARGE DIAGNOSES: COVID-19 pneumonia, metabolic encephalopathy, underlying dementia, coronary artery disease, end-stage renal disease on hemodialysis, hypertension, deconditioning. PROCEDURES DONE DURING HOSPITALIZATION: Chest x-ray done on the day of admission showed bibasilar infiltrates. Hemoglobin and hematocrit of 8 and 24, platelet count 154, had a white count of 2.7 on the day of admission, MCV 103, 74% neutrophils, and 16% lymphocytes on the day of admission. BUN and creatinine were 30 and 4.1 on 05/20/2020. CRP levels were 16 on 12 of May, on 17 of May, it was 9.8. Ferritin peaked up to 2810 on and came down to 2386 on . Total cholesterol 86, triglycerides 70, LDL 40, HDL 32. COVID-19 PCR was positive on 05/10/2020. HBS antigen was nonreactive on 05/12/2020. DISCHARGE MEDICATIONS: 1. Aspirin 81 mg p.o. daily. 2. Sensipar 30 mg p.o. daily. 3. Plavix 75 mg daily. 4. Vitamin D2 1250 mcg p.o. once weekly. 5. Metoprolol tartrate 25 mg twice daily. 6. Sevelamer 1600 mg p.o. 3 times daily. 7. Zocor 40 mg daily. 8. Hydralazine 25 mg three times daily. 9. Lantus 10 units subcu twice daily. 10. Protonix 40 mg p.o. daily. ALLERGIES: NO KNOWN DRUG ALLERGIES. INPATIENT CONSULT: Dr. Thomas for Nephrology, Dr. Ruiz for Infectious Disease. DISCHARGE PLAN: The patient to follow up with Dr. Hough in 10 days. BRIEF COURSE DURING HOSPITALIZATION: The patient initially got admitted on the 10 of May with complaints of generalized weakness. He was brought by family as he is confused. He had a temperature of 100.6 degrees on arrival. In view of this, the patient was tested for COVID-19 virus. He came back positive for it. He was also found to have bilateral infiltrates. He was placed on steroids. The patient has remained hemodynamically stable all through his stay. He has had hemodialysis done as well. He has severe deconditioning and is barely able to stand with assist. He was mostly wheelchair-bound at home prior to arrival per family. They were given the option of placing him in a skilled unit, but they refused the same. The patient has a change of his dialysis in place and has been set up in [facility]. He also has [facility] home health set up prior to discharge. The patient also has loss of appetite and is eating 30% to 40% of his tray. Family is aware of all of this and they would like to take him home and multiple family members assist and help him. In view of his age of 79 with multiple comorbid conditions and very supportive family, the patient is being discharged home. Please see a [id number] documentation for the day of discharge on [employer]. Job ID: [id number]
== END 2020-05-21 17:15 | disposition home health service (06) | DRG 871 ==
LOC: ERS 10:22 → 2SW 14:43
PROVIDERS: ADMIT Internal Medicine; ATTEND Internal Medicine
PROC: 8E0ZXY6 Isolation (ICD-10-PCS; principal; 2020-05-10)
PROC: 5A1D70Z Performance of Urinary Filtration, Intermittent, Less than 6 Hours Per Day (ICD-10-PCS; 2020-05-17)
DX: A41.89 Other specified sepsis (principal); U07.1 COVID-19; N18.6 End stage renal disease; G93.41 Metabolic encephalopathy; J12.89 Other viral pneumonia; I21.A1 Myocardial infarction type 2; E87.1 Hypo-osmolality and hyponatremia; I25.10 Atherosclerotic heart disease of native coronary artery without angina pectoris; I10 Essential (primary) hypertension; E11.22 Type 2 diabetes mellitus with diabetic chronic kidney disease; D63.1 Anemia in chronic kidney disease; E11.65 Type 2 diabetes mellitus with hyperglycemia; E87.6 Hypokalemia; Z79.899 Other long term (current) drug therapy; Z79.02 Long term (current) use of antithrombotics/antiplatelets; Z99.2 Dependence on renal dialysis; I25.2 Old myocardial infarction; Z79.82 Long term (current) use of aspirin; Z79.84 Long term (current) use of oral hypoglycemic drugs
CPT/HCPCS: 36415; 36416; 71045; 80048; 80053; 80061; 82140; 82550; 82553; 82728; 83690; 84484; 85014; 85018; 85025; 85049; 85379; 85730; 86140; 87340; 87635; 90935; 93005; 94760; 96365; G0257; J0360; J0456; J0696; J1100; J1644; J1650; J1815; J3490; J7050; Q5105; U0003